=== PATIENT | male | born 1950 | race Caucasian/White ===

== ENCOUNTER 2020-01-02 19:30 | Emergency (ER) | payer BC, MEDICARE ==
[2020-01-02] MEDS ORDERED: Sodium Chloride 0.9% 10 ML Syringe FLUSH PRN (19:33)
--- NOTE | 2020-01-02 19:47 | EDM.PDOC ---
ED HPI GENERAL MEDICAL PROBLEM - General Stated Complaint: CHEST PAIN Time Seen by Provider: 01/02/20 19:31 Source of Information: Reports: Patient History Limitations: Reports: No Limitations - History of Present Illness INITIAL COMMENTS - FREE TEXT/NARRATIVE: Holden is a 69-year-old male who presents to the ER for evaluation of acute onset of chest pain. Patient states it started earlier today with episodes occurring approximately every 15 minutes involving his left anterior lower chest. Each episode lasted about 1 to 2 seconds and was a dull ache. Over the course of the afternoon the duration of the pain has increased to about 5 to 10 seconds. Is not associated with any fever, chills, cough or shortness of breath, nausea or vomiting, diaphoresis, or palpitations. The patient denies any rash. When the pain comes it does not make it difficult for him to breathe. He has not had this before. Patient has a history of cerebral palsy and seizure disorder. He is on medications for hyperlipidemia and had been taking a half aspirin a day but has discontinued that in the last several weeks. He denies any trauma. Onset: Today Duration: Intermittent Location: Reports: Chest Quality: Reports: Ache, Dull Severity: Moderate Improves with: Reports: None Worsens with: Reports: None Associated Symptoms: Reports: No Other Symptoms upper left sided chest pain Pain Score (Numeric/FACES): 2 - Related Data Allergies Allergy/AdvReac Type Severity Reaction Status Date / Time No Known Allergies Allergy Verified 01/02/20 19:38 Home Meds: Home Meds Fenofibrate,Micronized [Fenofibrate] 134 mg PO QAM 01/12/13 [History] atorvaSTATin [Lipitor] 40 mg PO BEDTIME 01/12/13 [History] carBAMazepine [Carbamazepine] 400 mg PO BID 01/12/13 [History] lamoTRIgine [Lamotrigine] 200 mg PO BID 01/12/13 [History] Cholecalciferol (Vitamin D3) [Vitamin D3] 4,000 units PO BID 08/03/15 [History] [place]-3 Fatty Acids [Fish Oil] 300 mg PO DAILY 08/03/15 [History] Aspirin [Halfprin] 81 mg PO DAILY 02/13/18 [History] Magnesium 250 mg PO DAILY 02/13/18 [History] Past Medical History HEENT History: Reports: Impaired Vision Cardiovascular History: Reports: CAD, High Cholesterol Respiratory History: Reports: None, Sleep Apnea Other Respiratory History: c-pap Gastrointestinal History: Reports: None Genitourinary History: Reports: None Musculoskeletal History: Reports: None Neurological History: Reports: Cerebral Palsy, Seizure Other Neuro History: LAST SEIZURE WAS 1973 Psychiatric History: Reports: Depression Endocrine/Metabolic History: Reports: None Hematologic History: Reports: None Immunologic History: Reports: None Oncologic (Cancer) History: Reports: Basal Cell Carcinoma Dermatologic History: Reports: None - Infectious Disease History Infectious Disease History: Reports: Chicken Pox, Measles, Mumps - Past Surgical History HEENT Surgical History: Reports: None Cardiovascular Surgical History: Reports: Other (See Below) Other Cardiovascular Surgeries/Procedures: ANGIOGRAM GI Surgical History: Reports: Colonoscopy Endocrine Surgical History: Reports: None Neurological Surgical History: Reports: None Musculoskeletal Surgical History: Reports: None Oncologic Surgical History: Reports: None Dermatological Surgical History: Reports: None Social & Family History - Family History Family Medical History: Noncontributory - Caffeine Use Caffeine Use: Reports: Coffee, Soda ED ROS GENERAL - Review of Systems Review Of Systems: See Below Constitutional: Reports: No Symptoms HEENT: Reports: No Symptoms Respiratory: Reports: No Symptoms Cardiovascular: Reports: Chest Pain (Intermittent episodes occurring about every 15 minutes and lasting about 1 to 2 seconds increasing now to about 5 to 10 seconds described as dull aching pain. The does not appear to be any respiratory component to this i.e. pleurodynia.) Endocrine: Reports: No Symptoms GI/Abdominal: Reports: No Symptoms Musculoskeletal: Reports: No Symptoms Skin: Reports: No Symptoms. Denies: Rash Neurological: Reports: No Symptoms Psychiatric: Reports: No Symptoms Hematologic/Lymphatic: Reports: No Symptoms Immunologic: Reports: No Symptoms ED EXAM, GENERAL - Physical Exam Exam: See Below Exam Limited By: No Limitations General Appearance: Alert, WD/WN, No Apparent Distress Eye Exam: Bilateral Eye: EOMI, PERRL Head: Atraumatic, Normocephalic Neck: Normal Inspection, Non-Tender, Limited Range of Motion (Chronic kyphosis due to his cerebral palsy) Respiratory/Chest: No Respiratory Distress, Lungs Clear, Normal Breath Sounds, No Accessory Muscle Use, Chest Non-Tender Cardiovascular: Normal Peripheral Pulses, Regular Rate, Rhythm, No Edema, No Gallop, No JVD, No Murmur, No Rub Peripheral Pulses: 2+: Carotid (L), Carotid (R), Radial (L), Radial (R), Posterior Tibial (L), Posterior Tibial (R), Dorsalis Pedis (L), Dorsalis Pedis (R) GI/Abdominal: Normal Bowel Sounds, Soft, Non-Tender, No Organomegaly, No Distention, No Abnormal Bruit, No Mass Back Exam: Normal Inspection, Full Range of Motion, NT Extremities: Normal Inspection, Normal Range of Motion, Non-Tender, Normal Capillary Refill, No Pedal Edema Neurological: Alert, Oriented, CN II-XII Intact, Normal Cognition, Normal Gait, Normal Reflexes, No Motor/Sensory Deficits Psychiatric: Normal Affect, Normal Mood Skin Exam: Warm, Dry, Intact, Normal Color, No Rash. No: Rash Lymphatic: No Adenopathy #1 Interpretation EKG Date: 01/02/20 Time: 19:38 Rhythm: NSR Helen: Normal P-Wave: Present QRS: Normal ST-T: Normal QT: Normal Course - Vital Signs Last Recorded V/S: Last Vital Signs Temp 36.8 C 01/02/20 19:49 Pulse 71 01/02/20 19:49 Resp 16 01/02/20 19:49 BP 152/79 H 01/02/20 19:49 Pulse Ox 95 01/02/20 19:49 - Orders/Labs/Meds Orders: Active Orders 24 hr Category Date Time Status EKG Documentation Completion [RC] ASDIRECTED Care 01/02/20 19:34 Active Chest 2V [CR] Stat Exams 01/02/20 19:31 Taken Sodium Chloride 0.9% [Saline Flush] Med 01/02/20 19:33 Active 10 ml FLUSH ASDIRECTED PRN Saline Lock Insert [OM.PC] Routine Oth 01/02/20 19:33 Ordered EKG 12 Lead [EK] Routine Ther 01/02/20 19:34 Ordered Medication Orders Sodium Chloride (Saline Flush) 10 ml FLUSH ASDIRECTED PRN PRN Reason: Keep Vein Open Last Admin: 01/02/20 20:00 Dose: 10 ml Documented by: ASHWINI Labs: Laboratory Tests 01/02/20 01/02/20 01/02/20 Range/Units 19:48 19:48 19:48 WBC 8.4 (4.5-11.0) K/uL RBC 4.73 (4.30-5.90) M/uL Hgb 14.6 (12.0-15.0) g/dL Hct 43.3 (40.0-54.0) % MCV 92 (80-98) fL MCH 31 (27-31) pg MCHC 34 (32-36) % Plt Count 211 (150-400) K/uL Neut % (Auto) 52 (36-66) % Lymph % (Auto) 34 (24-44) % Douglas % (Auto) 8 H (2-6) % Eos % (Auto) 5 H (2-4) % Baso % (Auto) 1 (0-1) % PT 11.1 (9.5-12.0) sec INR 1.02 (0.80-1.20) D-Dimer, Quantitative < 100 (0.0-400.0) ng/mL Sodium (140-148) mmol/L Potassium (3.6-5.2) mmol/L Chloride (100-108) mmol/L Carbon Dioxide (21-32) mmol/L Anion Gap (5.0-14.0) mmol/L BUN (7-18) mg/dL Creatinine (0.8-1.3) mg/dL Est Cr Clr Drug Dosing mL/min Estimated GFR (MDRD) (>60) Glucose (74-106) mg/dL Calcium (8.5-10.1) mg/dL Total Bilirubin (0.2-1.0) mg/dL AST (15-37) U/L ALT (12-78) U/L Alkaline Phosphatase (46-116) U/L Troponin I (0.000-0.056) ng/mL C-Reactive Protein (0.0-0.3) mg/dL Total Protein (6.4-8.2) g/dL Albumin (3.4-5.0) g/dL Globulin (2.3-3.5) g/dL Albumin/Globulin Ratio (1.2-2.2) 01/02/20 01/02/20 Range/Units 19:48 20:19 WBC (4.5-11.0) K/uL RBC (4.30-5.90) M/uL Hgb (12.0-15.0) g/dL Hct (40.0-54.0) % MCV (80-98) fL MCH (27-31) pg MCHC (32-36) % Plt Count (150-400) K/uL Neut % (Auto) (36-66) % Lymph % (Auto) (24-44) % Douglas % (Auto) (2-6) % Eos % (Auto) (2-4) % Baso % (Auto) (0-1) % PT (9.5-12.0) sec INR (0.80-1.20) D-Dimer, Quantitative (0.0-400.0) ng/mL Sodium 138 L (140-148) mmol/L Potassium 3.6 (3.6-5.2) mmol/L Chloride 101 (100-108) mmol/L Carbon Dioxide 25 (21-32) mmol/L Anion Gap 15.6 H (5.0-14.0) mmol/L BUN 17 (7-18) mg/dL Creatinine 0.8 (0.8-1.3) mg/dL Est Cr Clr Drug Dosing 88.38 mL/min Estimated GFR (MDRD) > 60 (>60) Glucose 93 (74-106) mg/dL Calcium 8.8 (8.5-10.1) mg/dL Total Bilirubin 0.3 (0.2-1.0) mg/dL AST 17 (15-37) U/L ALT 26 (12-78) U/L Alkaline Phosphatase 69 (46-116) U/L Troponin I < 0.017 (0.000-0.056) ng/mL C-Reactive Protein < 0.05 (0.0-0.3) mg/dL Total Protein 7.1 (6.4-8.2) g/dL Albumin 4.0 (3.4-5.0) g/dL Globulin 3.1 (2.3-3.5) g/dL Albumin/Globulin Ratio 1.3 (1.2-2.2) Meds: Medications Generic Name Dose Route Start Last Admin Trade Name Freq PRN Reason Stop Dose Admin Sodium Chloride 10 ml 01/02/20 19:33 01/02/20 20:00 Saline Flush FLUSH 10 ml ASDIRECTED PRN Administration Keep Vein Open - Radiology Interpretation Free Text/Narrative:: 2 view chest x-ray is obtained showing bibasilar haziness likely due to either atelectasis or fibrosis. There is no acute infiltrates. Pacemaker is now present compared to his previous chest x-ray. There is otherwise no worrisome findings. Poor inspiratory effort demonstrating bilateral elevated hemidiaphragms. Departure - Departure Time of Disposition: 21:40 Disposition: Home, Self-Care 01 Condition: Good Clinical Impression: Atypical chest pain Instructions: Chest Wall Pain, [id number], Nonspecific Chest Pain, Adult, [id number] Care Plan Goals: I would encourage you to take either aspirin 325 mg once daily or ibuprofen 400 mg every 6 hours to help control your chest pain which is likely arising from the chest wall and irritation of either the nerve or muscle. There is no evidence at this time that this is arising from your heart or lung. Return to the emergency room for evaluation if you start to develop any significant fever, chills, shortness of breath, productive cough, or worsening of your chest pain. Sepsis Event Note (ED) - Focused Exam Vital Signs: Vital Signs Temp Pulse Resp BP Pulse Ox 01/02/20 19:49 36.8 C 71 16 152/79 H 95 - Problem List & Annotations (1) Chest pain, non-cardiac SNOMED Code(s): 696335514 Code(s): R07.89 - OTHER CHEST PAIN Status: Acute Priority: Medium Current Visit: No (2) Atypical chest pain SNOMED Code(s): 731004019 Code(s): R07.89 - OTHER CHEST PAIN Status: Acute Priority: Medium Current Visit: Yes - Problem List Review Problem List Initiated/Reviewed/Updated: Yes - My Orders Last 24 Hours: My Active Orders 01/02/20 19:31 Chest 2V [CR] Stat 01/02/20 19:33 Sodium Chloride 0.9% [Saline Flush] 10 ml FLUSH ASDIRECTED PRN Saline Lock Insert [OM.PC] Routine 01/02/20 19:34 EKG Documentation Completion [RC] ASDIRECTED EKG 12 Lead [EK] Routine - Assessment/Plan Last 24 Hours: My Active Orders 01/02/20 19:31 Chest 2V [CR] Stat 01/02/20 19:33 Sodium Chloride 0.9% [Saline Flush] 10 ml FLUSH ASDIRECTED PRN Saline Lock Insert [OM.PC] Routine 10/15/20 19:34 EKG Documentation Completion [RC] ASDIRECTED EKG 12 Lead [EK] Routine
[2020-01-02 19:57] VITALS: BP 152/79; PULSE 71
--- NOTE | 2020-01-03 09:04 | CR ---
CHEST: 2 view CLINICAL HISTORY:Chest pain COMPARISON:2013 FINDINGS: Heart size and pulmonary vascularity are normal. Patient has permanent cardiac pacer/defibrillator. There are atherosclerotic changes in the aorta.. There is some patchy density in both lower lung kennedy some of this may be patchy atelectasis. Minimal infiltrate is not excluded. IMPRESSION: Minimal patchy bibasal densities. This may be some patchy atelectasis. Infiltrate is felt less likely. If clinically relevant short-term follow-up chest x-ray is a consideration
== END 2020-01-02 21:53 | disposition home or self-care (01) ==
LOC: JP.ED 19:30
DX: R07.89 Other chest pain (principal); I25.10 Atherosclerotic heart disease of native coronary artery without angina pectoris; E78.00 Pure hypercholesterolemia, unspecified; F32.9 Major depressive disorder, single episode, unspecified; M40.209 Unspecified kyphosis, site unspecified; Z79.82 Long term (current) use of aspirin; Z79.899 Other long term (current) drug therapy
CPT/HCPCS: 36415; 71046; 71046-26; 80053; 82962; 84484; 85025; 85379; 85610; 86140; 93005; 99285-25

== ENCOUNTER 2020-01-19 14:03 | Inpatient (IN) | payer MEDICARE ==
[2020-01-19] MEDS ORDERED: Dexamethasone 4 MG/ML SDV IVPUSH ONE (14:41)
--- NOTE | 2020-01-19 14:47 | EDM.PDOC ---
ED HPI GENERAL MEDICAL PROBLEM - General Chief Complaint: Respiratory Problem Stated Complaint: MEDICAL Time Seen by Provider: 01/19/20 14:30 Source of Information: Reports: Patient History Limitations: Reports: No Limitations - History of Present Illness INITIAL COMMENTS - FREE TEXT/NARRATIVE: 70-year-old male with cold-like symptoms for the past 4 days, his is Covid positive. He got a Covid test at the clinic 3 days ago which is pending, but he is worsening, worsening cough, more short of breath and more persistent fevers and just hurts all over. Denies nausea or vomiting. Arrived hypoxic with O2 sats in the mid to upper 80s and a persistent cough. Temperature of 102. Onset: Gradual Duration: Day(s): Associated Symptoms: Reports: Chest Pain (Some pain with coughing), Cough (Nonproductive), Shortness of Breath - Related Data Allergies Allergy/AdvReac Type Severity Reaction Status Date / Time No Known Allergies Allergy Verified 01/19/20 14:10 Home Meds: Home Meds Fenofibrate,Micronized [Fenofibrate] 134 mg PO QAM 01/12/13 [History] atorvaSTATin [Lipitor] 40 mg PO BEDTIME 01/12/13 [History] carBAMazepine [Carbamazepine] 400 mg PO BID 01/12/13 [History] lamoTRIgine [Lamotrigine] 200 mg PO BID 01/12/13 [History] Cholecalciferol (Vitamin D3) [Vitamin D3] 4,000 units PO BID 08/03/15 [History] [place]-3 Fatty Acids [Fish Oil] 300 mg PO DAILY 08/03/15 [History] Aspirin [Halfprin] 81 mg PO DAILY 02/13/18 [History] Magnesium 250 mg PO DAILY 02/13/18 [History] Past Medical History HEENT History: Reports: Impaired Vision Cardiovascular History: Reports: CAD, High Cholesterol Respiratory History: Reports: None, Sleep Apnea Other Respiratory History: c-pap Gastrointestinal History: Reports: None Genitourinary History: Reports: None Musculoskeletal History: Reports: None Neurological History: Reports: Cerebral Palsy, Seizure Other Neuro History: LAST SEIZURE WAS 1972 Psychiatric History: Reports: Depression Endocrine/Metabolic History: Reports: None Hematologic History: Reports: None Immunologic History: Reports: None Oncologic (Cancer) History: Reports: Basal Cell Carcinoma Dermatologic History: Reports: None - Infectious Disease History Infectious Disease History: Reports: Chicken Pox, Measles, Mumps - Past Surgical History HEENT Surgical History: Reports: None Cardiovascular Surgical History: Reports: Other (See Below) Other Cardiovascular Surgeries/Procedures: ANGIOGRAM GI Surgical History: Reports: Colonoscopy Endocrine Surgical History: Reports: None Neurological Surgical History: Reports: None Musculoskeletal Surgical History: Reports: None Oncologic Surgical History: Reports: None Dermatological Surgical History: Reports: None Social & Family History - Family History Family Medical History: Noncontributory - Tobacco Use Tobacco Use Status *Q: Never Tobacco User - Caffeine Use Caffeine Use: Reports: Coffee, Soda ED ROS GENERAL - Review of Systems Review Of Systems: See Below Constitutional: Reports: Fever, Chills, Malaise HEENT: Reports: Throat Pain Respiratory: Reports: Shortness of Breath, Cough. Denies: Sputum Cardiovascular: Reports: Chest Pain (Only with coughing) GI/Abdominal: Denies: Vomiting Skin: Reports: Diaphoresis Neurological: Denies: Headache ED EXAM, GENERAL - Physical Exam Exam: See Below Exam Limited By: No Limitations General Appearance: Alert, Mild Distress (Looks very uncomfortable, weak) Head: Atraumatic Neck: Supple Respiratory/Chest: Other (Few basilar rales and scattered expiratory wheezes) Cardiovascular: Regular Rate, Rhythm GI/Abdominal: Soft, Non-Tender Extremities: Other (Chronic weakness of the left upper extremity, no lower extremity edema) Neurological: Alert, Oriented Psychiatric: Anxious Skin Exam: Warm, Dry, Other (Mildly diaphoretic) Course - Vital Signs Last Recorded V/S: Last Vital Signs Temp 97.6 F 01/21/20 11:08 Pulse 80 01/21/20 11:08 Resp 18 01/21/20 11:08 BP 111/54 L 01/21/20 11:08 Pulse Ox 95 01/21/20 11:08 - Orders/Labs/Meds Orders: Medication Orders Acetaminophen (Tylenol) 650 mg PO Q4H PRN PRN Reason: Fever Greater Than 101 Last Admin: 01/21/20 00:56 Dose: 650 mg Documented by: Admin: 01/20/20 08:55 Dose: 650 mg Documented by: Admin: 01/19/20 18:41 Dose: 650 mg Documented by: WILMAN Albuterol (Ventolin Hfa) 2 gm INH Q4H PRN PRN Reason: Shortness of Breath Last Admin: 01/21/20 00:32 Dose: 2 inhalation Documented by: Admin: 01/20/20 01:02 Dose: 2 inhalation Documented by: JARAD Aspirin (Halfprin) 81 mg PO DAILY [facility] Last Admin: 01/21/20 10:10 Dose: 81 mg Documented by: Admin: 01/20/20 08:42 Dose: 81 mg Documented by: CASTRO Atorvastatin Calcium (Lipitor) 40 mg PO BEDTIME [facility] Last Admin: 01/20/20 20:00 Dose: 40 mg Documented by: Admin: 01/19/20 20:31 Dose: 40 mg Documented by: JARAD Carbamazepine (Tegretol Tab) 400 mg PO BID [facility] Last Admin: 01/21/20 10:10 Dose: 400 mg Documented by: Admin: 01/20/20 20:00 Dose: 400 mg Documented by: Admin: 01/20/20 08:42 Dose: 400 mg Documented by: Admin: 01/19/20 20:32 Dose: 400 mg Documented by: JARAD Dexamethasone (Dexamethasone) 6 mg IVPUSH DAILY [facility] Stop: 01/29/20 09:01 Last Admin: 01/21/20 09:44 Dose: 6 mg Documented by: Admin: 01/20/20 08:43 Dose: 6 mg Documented by: CASTRO Enoxaparin Sodium (Lovenox) 40 mg SUBCUT BEDTIME [facility] Last Admin: 01/20/20 20:00 Dose: 40 mg Documented by: Admin: 01/19/20 20:31 Dose: 40 mg Documented by: JARAD Fenofibrate (Fenofibrate) 134 mg PO QAM [facility] Last Admin: 01/21/20 10:10 Dose: 134 mg Documented by: Admin: 01/20/20 08:42 Dose: 134 mg Documented by: CASTRO Remdesivir 100 mg/ Sodium (Chloride) 100 mls @ 100 mls/hr IV Q24H [facility] Stop: 01/23/20 15:59 Last Admin: 01/20/20 16:22 Dose: 100 mls/hr Documented by: CASTRO Potassium Chloride 20 meq/Lidocaine HCl 2 ml/ Sodium Chloride 112 mls @ 56 mls/hr IV Q2H [facility] Stop: 01/21/20 13:59 Last Admin: 01/21/20 10:13 Dose: 56 mls/hr Documented by: VALERIE Lamotrigine (Lamotrigine) 200 mg PO BID [facility] Last Admin: 01/21/20 10:10 Dose: 200 mg Documented by: Admin: 01/20/20 20:00 Dose: 200 mg Documented by: Admin: 01/20/20 08:42 Dose: 200 mg Documented by: Admin: 01/19/20 20:32 Dose: 200 mg Documented by: JARAD Magnesium Oxide (Magnesium Oxide) 400 mg PO DAILY [facility] Last Admin: 01/21/20 10:10 Dose: 400 mg Documented by: Admin: 01/20/20 08:42 Dose: 400 mg Documented by: CASTRO Ondansetron HCl (Zofran) 4 mg IV Q4H PRN PRN Reason: Nausea/Vomiting Last Admin: 01/21/20 00:56 Dose: 4 mg Documented by: Admin: 01/20/20 12:54 Dose: 4 mg Documented by: Admin: 01/20/20 00:24 Dose: 4 mg Documented by: JARAD Polyethylene Glycol (Miralax) 17 gm PO DAILY PRN PRN Reason: Constipation Sodium Chloride (Saline Flush) 10 ml FLUSH ASDIRECTED PRN PRN Reason: Keep Vein Open Labs: Laboratory Tests 01/19/20 01/19/20 01/19/20 Range/Units 15:04 15:04 15:04 WBC 8.4 (4.5-11.0) K/uL RBC 4.36 (4.30-5.90) M/uL Hgb 13.5 (12.0-15.0) g/dL Hct 39.2 L (40.0-54.0) % MCV 90 (80-98) fL MCH 31 (27-31) pg MCHC 34 (32-36) % Plt Count 185 (150-400) K/uL Neut % (Auto) 88 H (36-66) % Lymph % (Auto) 6 L (24-44) % [place] % (Auto) 6 (2-6) % Eos % (Auto) 1 L (2-4) % Baso % (Auto) 0 (0-1) % PT (9.5-12.0) sec INR (0.80-1.20) APTT (27.0-36.0) sec D-Dimer, Quantitative (0.0-400.0) ng/mL Sodium 132 L (140-148) mmol/L Potassium 3.4 L (3.6-5.2) mmol/L Chloride 97 L (100-108) mmol/L Carbon Dioxide 24 (21-32) mmol/L Anion Gap 14.4 H (5.0-14.0) mmol/L BUN 12 (7-18) mg/dL Creatinine 0.9 (0.8-1.3) mg/dL Est Cr Clr Drug Dosing 77.46 mL/min Estimated GFR (MDRD) > 60 (>60) Glucose 103 (74-106) mg/dL Lactic Acid 2.4 H (0.4-2.0) mmol/L Calcium 8.7 (8.5-10.1) mg/dL Ferritin > 1000 H (8-388) ng/ml Total Bilirubin 0.4 (0.2-1.0) mg/dL AST 31 D (15-37) U/L ALT 23 (12-78) U/L Alkaline Phosphatase 44 L (46-116) U/L C-Reactive Protein (0.0-0.3) mg/dL Total Protein 6.7 (6.4-8.2) g/dL Albumin 2.9 L (3.4-5.0) g/dL Globulin 3.8 H (2.3-3.5) g/dL Albumin/Globulin Ratio 0.8 L (1.2-2.2) 01/19/20 01/19/20 01/19/20 Range/Units 15:04 15:04 15:04 WBC (4.5-11.0) K/uL RBC (4.30-5.90) M/uL Hgb (12.0-15.0) g/dL Hct (40.0-54.0) % MCV (80-98) fL MCH (27-31) pg MCHC (32-36) % Plt Count (150-400) K/uL Neut % (Auto) (36-66) % Lymph % (Auto) (24-44) % [place] % (Auto) (2-6) % Eos % (Auto) (2-4) % Baso % (Auto) (0-1) % PT 10.0 (9.5-12.0) sec INR 0.92 (0.80-1.20) APTT 31.3 (27.0-36.0) sec D-Dimer, Quantitative 736 H (0.0-400.0) ng/mL Sodium (140-148) mmol/L Potassium (3.6-5.2) mmol/L Chloride (100-108) mmol/L Carbon Dioxide (21-32) mmol/L Anion Gap (5.0-14.0) mmol/L BUN (7-18) mg/dL Creatinine (0.8-1.3) mg/dL Est Cr Clr Drug Dosing mL/min Estimated GFR (MDRD) (>60) Glucose (74-106) mg/dL Lactic Acid (0.4-2.0) mmol/L Calcium (8.5-10.1) mg/dL Ferritin (8-388) ng/ml Total Bilirubin (0.2-1.0) mg/dL AST (15-37) U/L ALT (12-78) U/L Alkaline Phosphatase (46-116) U/L C-Reactive Protein (0.0-0.3) mg/dL Total Protein (6.4-8.2) g/dL Albumin (3.4-5.0) g/dL Globulin (2.3-3.5) g/dL Albumin/Globulin Ratio (1.2-2.2) 01/19/20 Range/Units 15:04 WBC (4.5-11.0) K/uL RBC (4.30-5.90) M/uL Hgb (12.0-15.0) g/dL Hct (40.0-54.0) % MCV (80-98) fL MCH (27-31) pg MCHC (32-36) % Plt Count (150-400) K/uL Neut % (Auto) (36-66) % Lymph % (Auto) (24-44) % [place] % (Auto) (2-6) % Eos % (Auto) (2-4) % Baso % (Auto) (0-1) % PT (9.5-12.0) sec INR (0.80-1.20) APTT (27.0-36.0) sec D-Dimer, Quantitative (0.0-400.0) ng/mL Sodium (140-148) mmol/L Potassium (3.6-5.2) mmol/L Chloride (100-108) mmol/L Carbon Dioxide (21-32) mmol/L Anion Gap (5.0-14.0) mmol/L BUN (7-18) mg/dL Creatinine (0.8-1.3) mg/dL Est Cr Clr Drug Dosing mL/min Estimated GFR (MDRD) (>60) Glucose (74-106) mg/dL Lactic Acid (0.4-2.0) mmol/L Calcium (8.5-10.1) mg/dL Ferritin (8-388) ng/ml Total Bilirubin (0.2-1.0) mg/dL AST (15-37) U/L ALT (12-78) U/L Alkaline Phosphatase (46-116) U/L C-Reactive Protein 19.06 H (0.0-0.3) mg/dL Total Protein (6.4-8.2) g/dL Albumin (3.4-5.0) g/dL Globulin (2.3-3.5) g/dL Albumin/Globulin Ratio (1.2-2.2) Meds: Medications Generic Name Dose Route Start Last Admin Trade Name Freq PRN Reason Stop Dose Admin Acetaminophen 650 mg 01/19/20 17:59 01/21/20 00:56 Tylenol PO 650 mg Q4H PRN Administration Fever Greater Than 101 Albuterol 2 gm 01/20/20 00:44 01/21/20 00:32 Ventolin Hfa INH 2 inhalation Q4H PRN Administration Shortness of Breath Aspirin 81 mg 01/20/20 09:00 01/21/20 10:10 Halfprin PO 81 mg DAILY SHIRA Administration Atorvastatin Calcium 40 mg 01/19/20 21:00 01/20/20 20:00 Lipitor PO 40 mg BEDTIME SHIRA Administration Carbamazepine 400 mg 01/19/20 21:00 01/21/20 10:10 Tegretol Tab PO 400 mg BID SHIRA Administration Dexamethasone 6 mg 01/20/20 09:00 01/21/20 09:44 Dexamethasone IVPUSH 01/29/20 09:01 6 mg DAILY SHIRA Administration Enoxaparin Sodium 40 mg 01/19/20 21:00 01/20/20 20:00 Lovenox SUBCUT 40 mg BEDTIME SHIRA Administration Fenofibrate 134 mg 01/20/20 09:00 01/21/20 10:10 Fenofibrate PO 134 mg QAM SHIRA Administration Remdesivir 100 mg/ Sodium 100 mls @ 100 mls/hr 01/20/20 15:00 01/20/20 16:22 Chloride IV 01/23/20 15:59 100 mls/hr Q24H SHIRA Administration Potassium Chloride 20 meq/ 112 mls @ 56 mls/hr 01/21/20 10:00 01/21/20 10:13 Lidocaine HCl 2 ml/ Sodium IV 01/21/20 13:59 56 mls/hr Chloride Q2H SHIRA Administration Lamotrigine 200 mg 01/19/20 21:00 01/21/20 10:10 Lamotrigine PO 200 mg BID SHIRA Administration Magnesium Oxide 400 mg 01/20/20 09:00 01/21/20 10:10 Magnesium Oxide PO 400 mg DAILY SHIRA Administration Ondansetron HCl 4 mg 01/19/20 17:59 01/21/20 00:56 Zofran IV 4 mg Q4H PRN Administration Nausea/Vomiting Polyethylene Glycol 17 gm 01/19/20 17:59 Miralax PO DAILY PRN Constipation Sodium Chloride 10 ml 01/19/20 17:59 Saline Flush FLUSH ASDIRECTED PRN Keep Vein Open Discontinued Medications Generic Name Dose Route Start Last Admin Trade Name Freq PRN Reason Stop Dose Admin Dexamethasone 6 mg 01/19/20 14:41 01/19/20 15:19 Dexamethasone IVPUSH 01/19/20 14:42 6 mg ONETIME ONE Administration Furosemide 40 mg 01/20/20 12:30 01/20/20 12:54 Lasix IVPUSH 01/20/20 12:31 40 mg ONETIME ONE Administration Furosemide 40 mg 01/21/20 09:00 Lasix IVPUSH 01/21/20 09:01 ONETIME ONE Furosemide 40 mg 01/21/20 00:44 01/21/20 00:58 Lasix IVPUSH 01/21/20 00:45 40 mg ONETIME ONE Administration Furosemide Confirm 01/21/20 00:53 01/21/20 00:59 Lasix Administered 01/21/20 00:54 Not Given Dose 40 mg .ROUTE .STK-MED ONE Remdesivir 200 mg/ Sodium 250 mls @ 250 mls/hr 01/19/20 14:40 01/19/20 15:22 Chloride IV 01/19/20 14:41 250 mls/hr ONETIME ONE Administration Sodium Chloride 1,000 mls @ 500 mls/hr 01/19/20 15:00 01/19/20 15:19 Normal Saline IV 500 mls/hr ASDIRECTED SHIRA Administration Lorazepam 1 mg 01/20/20 00:51 01/20/20 01:02 Ativan IVPUSH 01/20/20 00:52 1 mg ONETIME ONE Administration - Re-Assessments/Exams Free Text/Narrative Re-Assessment/Exam: 01/19/20 14:46 Chart was checked and this patient is positive for Covid. Precautions were taken, 1 view chest x-ray was ordered along with CBC, CMP, CRP, D-dimer, PT, PTT, and ferritin. After IV was established he was given 200 mg of IV remdesivir and 6 mg of IV dexamethasone. 01/19/20 15:44 Chest x-ray shows bilateral pulmonary infiltrates typical of Covid. 01/19/20 15:45 White blood cell count is normal but CRP is very elevated at 19. Dr. Barr will admit the patient to the Covid unit. Departure - Departure Time of Disposition: 18:36 Disposition: Admitted As Inpatient 67 Clinical Impression: COVID-19 Pneumonia Qualifiers: Laterality: bilateral - Discharge Information Sepsis Event Note (ED) - Evaluation Sepsis Screening Result: Possible Sepsis Risk
[2020-01-19] MEDS ORDERED: Sodium Chloride 0.9% 1,000 ML IV SCH (15:00)
--- NOTE | 2020-01-19 17:37 | PCM.HP.2 ---
H&P History of Present Illness - General Date of Service: 01/19/20 Admit Problem/Dx: Admission Diagnosis/Problem Admission Diagnosis/Problem Hypoxia Source of Information: Patient, Provider, RN Notes Reviewed History Limitations: Reports: No Limitations - History of Present Illness Initial Comments - Free Text/Narative: Mr. Black is a 70-year-old gentleman who was admitted through the emergency department with cough, weakness, shortness of breath, secondary to COVID-19 and bilateral pneumonia. He has been sick for several days and has become progressively more short of breath over the last 24 hours. He is known to be Covid positive. Chest x-ray does show evidence of bilateral infiltrates. He was found to be hypoxic on initial presentation but has corrected to normal oxygenation with 2 L of oxygen via nasal cannula. He denies underlying diabetes, significant heart disease, or chronic respiratory illnesses. He has had temperature elevation while in the emergency department. - Related Data Allergies/Adverse Reactions: Allergies Allergy/AdvReac Type Severity Reaction Status Date / Time No Known Allergies Allergy Verified 01/19/20 14:10 Home Medications: Home Meds Fenofibrate,Micronized [Fenofibrate] 134 mg PO QAM 01/12/13 [History] atorvaSTATin [Lipitor] 40 mg PO BEDTIME 01/12/13 [History] carBAMazepine [Carbamazepine] 400 mg PO BID 01/12/13 [History] lamoTRIgine [Lamotrigine] 200 mg PO BID 01/12/13 [History] Cholecalciferol (Vitamin D3) [Vitamin D3] 4,000 units PO BID 08/03/15 [History] [place]-3 Fatty Acids [Fish Oil] 300 mg PO DAILY 08/03/15 [History] Aspirin [Halfprin] 81 mg PO DAILY 02/13/18 [History] Magnesium 250 mg PO DAILY 02/13/18 [History] Past Medical History HEENT History: Reports: Impaired Vision Cardiovascular History: Reports: CAD, High Cholesterol Respiratory History: Reports: None, Sleep Apnea Other Respiratory History: c-pap Gastrointestinal History: Reports: None Genitourinary History: Reports: None Musculoskeletal History: Reports: None Neurological History: Reports: Cerebral Palsy, Seizure Other Neuro History: LAST SEIZURE WAS 1972 Psychiatric History: Reports: Depression Endocrine/Metabolic History: Reports: None Hematologic History: Reports: None Immunologic History: Reports: None Oncologic (Cancer) History: Reports: Basal Cell Carcinoma Dermatologic History: Reports: None - Infectious Disease History Infectious Disease History: Reports: Chicken Pox, Measles, Mumps - Past Surgical History HEENT Surgical History: Reports: None Cardiovascular Surgical History: Reports: Other (See Below) Other Cardiovascular Surgeries/Procedures: ANGIOGRAM GI Surgical History: Reports: Colonoscopy Endocrine Surgical History: Reports: None Neurological Surgical History: Reports: None Musculoskeletal Surgical History: Reports: None Oncologic Surgical History: Reports: None Dermatological Surgical History: Reports: None Social & Family History - Family History Family Medical History: Noncontributory - Tobacco Use Tobacco Use Status *Q: Never Tobacco User - Caffeine Use Caffeine Use: Reports: Coffee, Soda H&P Review of Systems - Review of Systems: Review Of Systems: See Below General: Reports: Fever, Chills, Malaise, Weakness, Fatigue, Decreased Appetite HEENT: Reports: No Symptoms Pulmonary: Reports: Shortness of Breath, Cough. Denies: Wheezing, Pleuritic Chest Pain, Sputum, Hemoptysis Cardiovascular: Reports: Dyspnea on Exertion. Denies: Chest Pain, Palpitations, Orthopnea, PND, Edema, Lightheadedness Gastrointestinal: Reports: No Symptoms Genitourinary: Reports: No Symptoms Musculoskeletal: Reports: No Symptoms Skin: Reports: No Symptoms Psychiatric: Reports: No Symptoms Neurological: Reports: No Symptoms Hematologic/Lymphatic: Reports: No Symptoms Immunologic: Reports: No Symptoms Exam - Exam Exam: See Below - Vital Signs Vital Signs: Last Vital Signs Temp 102.3 F H 01/19/20 14:21 Pulse 75 01/19/20 16:18 Resp 28 H 01/19/20 14:21 BP 142/64 H 01/19/20 16:18 Pulse Ox 88 L 01/19/20 16:18 Weight: 205 lb - Exam Quality Assessment: Supplemental Oxygen, DVT Prophylaxis General: Alert, Oriented, Cooperative, Moderate Distress HEENT: Conjunctiva Clear, Hearing Intact, Mucosa Moist & [place], Normal Nasal Septum, Posterior Pharynx Clear, Pupils Equal Neck: Supple, Trachea Midline, +2 Carotid Pulse wo Bruit Lungs: Decreased Breath Sounds, Rales. No: Crackles, Rhonchi, Wheezing Cardiovascular: Regular Rate, Regular Rhythm, Normal S1, Normal S2. No: Systolic Murmur, Diastolic Murmur GI/Abdominal Exam: Soft, Non-Tender, No Organomegaly, No Distention Back Exam: Normal Inspection, Full Range of Motion Extremities: Non-Tender, No Pedal Edema Skin: Warm, Dry, Intact Neurological: Cranial Nerves Intact, Strength Equal Bilateral, Normal Speech, Normal Tone, Sensation Intact. No: Focal Deficit Neuro Extensive - Mental Status: Alert, Oriented x3, Normal Mood/Affect, Normal Cognition, Memory Intact - Patient Data Lab Results Last 24 hrs: Laboratory Results - last 24 hr 01/19/20 01/19/20 01/19/20 Range/Units 15:04 15:04 15:04 WBC 8.4 (4.5-11.0) K/uL RBC 4.36 (4.30-5.90) M/uL Hgb 13.5 (12.0-15.0) g/dL Hct 39.2 L (40.0-54.0) % MCV 90 (80-98) fL MCH 31 (27-31) pg MCHC 34 (32-36) % Plt Count 185 (150-400) K/uL Neut % (Auto) 88 H (36-66) % Lymph % (Auto) 6 L (24-44) % [place] % (Auto) 6 (2-6) % Eos % (Auto) 1 L (2-4) % Baso % (Auto) 0 (0-1) % PT (9.5-12.0) sec INR (0.80-1.20) APTT (27.0-36.0) sec D-Dimer, Quantitative (0.0-400.0) ng/mL Sodium 132 L (140-148) mmol/L Potassium 3.4 L (3.6-5.2) mmol/L Chloride 97 L (100-108) mmol/L Carbon Dioxide 24 (21-32) mmol/L Anion Gap 14.4 H (5.0-14.0) mmol/L BUN 12 (7-18) mg/dL Creatinine 0.9 (0.8-1.3) mg/dL Est Cr Clr Drug Dosing 77.46 mL/min Estimated GFR (MDRD) > 60 (>60) Glucose 103 (74-106) mg/dL Lactic Acid 2.4 H (0.4-2.0) mmol/L Calcium 8.7 (8.5-10.1) mg/dL Ferritin > 1000 H (8-388) ng/ml Total Bilirubin 0.4 (0.2-1.0) mg/dL AST 31 D (15-37) U/L ALT 23 (12-78) U/L Alkaline Phosphatase 44 L (46-116) U/L C-Reactive Protein (0.0-0.3) mg/dL Total Protein 6.7 (6.4-8.2) g/dL Albumin 2.9 L (3.4-5.0) g/dL Globulin 3.8 H (2.3-3.5) g/dL Albumin/Globulin Ratio 0.8 L (1.2-2.2) 01/19/20 01/19/20 01/19/20 Range/Units 15:04 15:04 15:04 WBC (4.5-11.0) K/uL RBC (4.30-5.90) M/uL Hgb (12.0-15.0) g/dL Hct (40.0-54.0) % MCV (80-98) fL MCH (27-31) pg MCHC (32-36) % Plt Count (150-400) K/uL Neut % (Auto) (36-66) % Lymph % (Auto) (24-44) % [place] % (Auto) (2-6) % Eos % (Auto) (2-4) % Baso % (Auto) (0-1) % PT 10.0 (9.5-12.0) sec INR 0.92 (0.80-1.20) APTT 31.3 (27.0-36.0) sec D-Dimer, Quantitative 736 H (0.0-400.0) ng/mL Sodium (140-148) mmol/L Potassium (3.6-5.2) mmol/L Chloride (100-108) mmol/L Carbon Dioxide (21-32) mmol/L Anion Gap (5.0-14.0) mmol/L BUN (7-18) mg/dL Creatinine (0.8-1.3) mg/dL Est Cr Clr Drug Dosing mL/min Estimated GFR (MDRD) (>60) Glucose (74-106) mg/dL Lactic Acid (0.4-2.0) mmol/L Calcium (8.5-10.1) mg/dL Ferritin (8-388) ng/ml Total Bilirubin (0.2-1.0) mg/dL AST (15-37) U/L ALT (12-78) U/L Alkaline Phosphatase (46-116) U/L C-Reactive Protein (0.0-0.3) mg/dL Total Protein (6.4-8.2) g/dL Albumin (3.4-5.0) g/dL Globulin (2.3-3.5) g/dL Albumin/Globulin Ratio (1.2-2.2) 01/19/20 Range/Units 15:04 WBC (4.5-11.0) K/uL RBC (4.30-5.90) M/uL Hgb (12.0-15.0) g/dL Hct (40.0-54.0) % MCV (80-98) fL MCH (27-31) pg MCHC (32-36) % Plt Count (150-400) K/uL Neut % (Auto) (36-66) % Lymph % (Auto) (24-44) % [place] % (Auto) (2-6) % Eos % (Auto) (2-4) % Baso % (Auto) (0-1) % PT (9.5-12.0) sec INR (0.80-1.20) APTT (27.0-36.0) sec D-Dimer, Quantitative (0.0-400.0) ng/mL Sodium (140-148) mmol/L Potassium (3.6-5.2) mmol/L Chloride (100-108) mmol/L Carbon Dioxide (21-32) mmol/L Anion Gap (5.0-14.0) mmol/L BUN (7-18) mg/dL Creatinine (0.8-1.3) mg/dL Est Cr Clr Drug Dosing mL/min Estimated GFR (MDRD) (>60) Glucose (74-106) mg/dL Lactic Acid (0.4-2.0) mmol/L Calcium (8.5-10.1) mg/dL Ferritin (8-388) ng/ml Total Bilirubin (0.2-1.0) mg/dL AST (15-37) U/L ALT (12-78) U/L Alkaline Phosphatase (46-116) U/L C-Reactive Protein 19.06 H (0.0-0.3) mg/dL Total Protein (6.4-8.2) g/dL Albumin (3.4-5.0) g/dL Globulin (2.3-3.5) g/dL Albumin/Globulin Ratio (1.2-2.2) Result Diagrams: 01/19/20 15:04 01/19/20 15:04 Sepsis Event Note - Evaluation Sepsis Screening Result: Possible Sepsis Risk - Focused Exam Vital Signs: Vital Signs Temp Pulse Resp BP Pulse Ox 01/19/20 16:18 75 142/64 H 88 L 01/19/20 15:22 88 147/66 H 89 L 01/19/20 14:21 102.3 F H 94 28 H 155/73 H 84 L *Q Meaningful Use (ADM) - VTE Risk Assess *Q Each Risk Factor Represents 1 Point: Obesity ( BMI > 25 kg/m2), Serious lung disease including pneumonia Total Score 1 Point Risk Factors: 2 Each Risk Factor Represents 2 Points: Age 60 - 74 Years Total Score 2 Point Risk Factors: 2 Each Risk Factor Represents 3 Points: None Total Score 3 Point Risk Factors: 0 Each Risk Factor Represents 5 Points: None Total Score 5 Point Risk Factors: 0 Venous Thromboembolism Risk Factor Score *Q: 4 Problem List Initiated/Reviewed/Updated: Yes Orders Last 24hrs: Active Orders 24 hr Category Date Time Status Patient Status Manage Transfer [TRANSFER] Routine ADT 01/19/20 17:22 Ordered Chest 1V Frontal [CR] Stat Exams 01/19/20 14:38 Taken Sodium Chloride 0.9% [Normal Saline] 1,000 ml Med 01/19/20 15:00 Active IV ASDIRECTED Resuscitation Status Routine Resus Stat 01/19/20 17:28 Ordered Medication Orders Sodium Chloride (Normal Saline) 1,000 mls @ 500 mls/hr IV ASDIRECTED SHIRA Last Admin: 01/19/20 15:19 Dose: 500 mls/hr Documented by: CHARLES Assessment/Plan Comment:: ASSESSMENT AND PLAN SECONDARY TO [id number] for the past few days, increased dyspnea over the last 24 hours. Progressive weakness and nonproductive cough. -Saline lock IV -Remdesivir 200 mg IV given in emergency department, 100 mg IV daily x4 days starting tomorrow -Dexamethasone 6 mg IV for 5 to 10 days -Convalescent plasma 1 unit daily -Isolation HYPOXIC RESPIRATORY COMPROMISE-secondary to COVID-19 and bilateral pneumonia -Supplemental oxygen as needed -Continuous pulse oximetry SEIZURE DISORDER -Continue new outpatient medications MAINTENANCE ISSUES -DVT prophylaxis; Lovenox 40 mg subcu daily -GI prophylaxis; not indicated -Mccoy catheter; not indicated -Nutrition; regular diet -Nicotine dependence; not required CODE STATUS-FULL CODE, I did review with this with the patient and at the present time he would like full resuscitation. He understands poor prognosis for survival if he does require intubation. ADMISSION STATUS-patient will be admitted to inpatient status, expect at least a 2 night hospital stay for evaluation and management of problems as outlined above. At the time of this admission I do not reasonably expected evaluation and management of this problem will require more than a 96 hour hospital stay. DISPOSITION-anticipate discharge to home after the hospital stay. PRIMARY CARE PROVIDER- - Mortality Measure Prognosis:: Poor
[2020-01-19] MEDS ORDERED: Polyethylene Glycol 3350 Powder 17 GM Packet PO PRN (17:59)
[2020-01-19] MEDS ORDERED: Sodium Chloride 0.9% 10 ML Syringe FLUSH PRN (17:59)
[2020-01-19] MEDS: Acetaminophen 325 MG Tab PO PRN (18:41)
[2020-01-19] MEDS: atorvaSTATin 20 MG Tab PO SCH (20:31)
[2020-01-19] MEDS: Enoxaparin 40 MG/0.4 ML Syringe SUBCUT SCH (20:31)
[2020-01-19] MEDS: lamoTRIgine 100 MG Tab PO SCH (20:32)
[2020-01-19] MEDS: carBAMazepine 200 MG Tab PO SCH (20:32)
[2020-01-20] MEDS: Ondansetron 4 MG/2 ML SDV IV PRN ×2 (00:24→12:54)
[2020-01-20] MEDS ORDERED: LORazepam 2 MG/ML SDV IVPUSH ONE (00:51)
[2020-01-20] MEDS: Albuterol 8 GM Inhaler INH PRN (01:02)
[2020-01-20] MEDS: lamoTRIgine 100 MG Tab PO SCH ×2 (08:42→20:00)
[2020-01-20] MEDS: carBAMazepine 200 MG Tab PO SCH ×2 (08:42→20:00)
[2020-01-20] MEDS: Fenofibrate,Micronized 67 MG Cap PO SCH (08:42)
[2020-01-20] MEDS: Aspirin 81 MG Tab.EC PO SCH (08:42)
[2020-01-20] MEDS: Magnesium Oxide 400 MG Tab PO SCH (08:42)
[2020-01-20] MEDS: Dexamethasone 4 MG/ML SDV IVPUSH SCH (08:43)
[2020-01-20] MEDS: Acetaminophen 325 MG Tab PO PRN (08:55)
--- NOTE | 2020-01-20 10:28 | CR ---
CHEST: Portable 01/19/2020 3:22 PM CLINICAL HISTORY:Hypoxia,: covid COMPARISON:01/02/2020 FINDINGS: Heart size is normal pulmonary vascularity is obscured by diffuse bilateral infiltrates. Patient has permanent cardiac pacer. There are atherosclerotic changes in the aorta. Impression: New diffuse bilateral pulmonary infiltrates.
--- NOTE | 2020-01-20 12:19 | PCM.PN ---
- General Info Date of Service: 01/20/20 Admission Dx/Problem (Free Text): 1. COVID 19 PNA 2. Acute hypoxia Subjective Update: Mr. Black was seen on the COVID 19 unit at [facility] on 01/20/2020. Patient is on 15 L NC oxygen and desaturates significantly with severe coughing fits, movement or mildly taxing activities. The patient, otherwise, is stable with respect to his other comorbidities. Patient is candidate for and is receiving convalescent serum, remdesivir, and dexamethasone. Denies any other issues. Functional Status: Reports: Pain Controlled, Tolerating Diet - Review of Systems General: Reports: Fever, Weakness, Fatigue, Malaise Pulmonary: Reports: Shortness of Breath, Cough Cardiovascular: Reports: Chest Pain Gastrointestinal: Reports: No Symptoms Neurological: Reports: No Symptoms Psychiatric: Reports: No Symptoms - Patient Data Vitals - Most Recent: Last Vital Signs Temp 97.4 F 01/20/20 11:17 Pulse 71 01/20/20 11:17 Resp 20 01/20/20 11:17 BP 127/67 01/20/20 11:17 Pulse Ox 96 01/20/20 11:17 Weight - Most Recent: 205 lb I&O - Last 24 Hours: Intake & Output 01/19/20 01/20/20 01/20/20 22:59 06:59 14:59 Intake Total 300 720 Output Total 400 500 Balance -400 300 220 Lab Results Last 24 Hours: Laboratory Results - last 24 hr 01/19/20 01/19/20 01/19/20 Range/Units 15:04 15:04 15:04 WBC 8.4 (4.5-11.0) K/uL RBC 4.36 (4.30-5.90) M/uL Hgb 13.5 (12.0-15.0) g/dL Hct 39.2 L (40.0-54.0) % MCV 90 (80-98) fL MCH 31 (27-31) pg MCHC 34 (32-36) % Plt Count 185 (150-400) K/uL Neut % (Auto) 88 H (36-66) % Lymph % (Auto) 6 L (24-44) % [place] % (Auto) 6 (2-6) % Eos % (Auto) 1 L (2-4) % Baso % (Auto) 0 (0-1) % PT (9.5-12.0) sec INR (0.80-1.20) APTT (27.0-36.0) sec D-Dimer, Quantitative (0.0-400.0) ng/mL Sodium 132 L (140-148) mmol/L Potassium 3.4 L (3.6-5.2) mmol/L Chloride 97 L (100-108) mmol/L Carbon Dioxide 24 (21-32) mmol/L Anion Gap 14.4 H (5.0-14.0) mmol/L BUN 12 (7-18) mg/dL Creatinine 0.9 (0.8-1.3) mg/dL Est Cr Clr Drug Dosing 77.46 mL/min Estimated GFR (MDRD) > 60 (>60) Glucose 103 (74-106) mg/dL Lactic Acid 2.4 H (0.4-2.0) mmol/L Calcium 8.7 (8.5-10.1) mg/dL Ferritin > 1000 H (8-388) ng/ml Total Bilirubin 0.4 (0.2-1.0) mg/dL AST 31 D (15-37) U/L ALT 23 (12-78) U/L Alkaline Phosphatase 44 L (46-116) U/L C-Reactive Protein (0.0-0.3) mg/dL Total Protein 6.7 (6.4-8.2) g/dL Albumin 2.9 L (3.4-5.0) g/dL Globulin 3.8 H (2.3-3.5) g/dL Albumin/Globulin Ratio 0.8 L (1.2-2.2) Blood Type 01/19/20 01/19/20 01/19/20 Range/Units 15:04 15:04 15:04 WBC (4.5-11.0) K/uL RBC (4.30-5.90) M/uL Hgb (12.0-15.0) g/dL Hct (40.0-54.0) % MCV (80-98) fL MCH (27-31) pg MCHC (32-36) % Plt Count (150-400) K/uL Neut % (Auto) (36-66) % Lymph % (Auto) (24-44) % [place] % (Auto) (2-6) % Eos % (Auto) (2-4) % Baso % (Auto) (0-1) % PT 10.0 (9.5-12.0) sec INR 0.92 (0.80-1.20) APTT 31.3 (27.0-36.0) sec D-Dimer, Quantitative 736 H (0.0-400.0) ng/mL Sodium (140-148) mmol/L Potassium (3.6-5.2) mmol/L Chloride (100-108) mmol/L Carbon Dioxide (21-32) mmol/L Anion Gap (5.0-14.0) mmol/L BUN (7-18) mg/dL Creatinine (0.8-1.3) mg/dL Est Cr Clr Drug Dosing mL/min Estimated GFR (MDRD) (>60) Glucose (74-106) mg/dL Lactic Acid (0.4-2.0) mmol/L Calcium (8.5-10.1) mg/dL Ferritin (8-388) ng/ml Total Bilirubin (0.2-1.0) mg/dL AST (15-37) U/L ALT (12-78) U/L Alkaline Phosphatase (46-116) U/L C-Reactive Protein (0.0-0.3) mg/dL Total Protein (6.4-8.2) g/dL Albumin (3.4-5.0) g/dL Globulin (2.3-3.5) g/dL Albumin/Globulin Ratio (1.2-2.2) Blood Type 01/19/20 01/20/20 01/20/20 Range/Units 15:04 05:05 05:05 WBC 8.3 (4.5-11.0) K/uL RBC 4.01 L (4.30-5.90) M/uL Hgb 12.4 (12.0-15.0) g/dL Hct 36.4 L (40.0-54.0) % MCV 91 (80-98) fL MCH 31 (27-31) pg MCHC 34 (32-36) % Plt Count 201 (150-400) K/uL Neut % (Auto) 83 H (36-66) % Lymph % (Auto) 9 L (24-44) % [place] % (Auto) 8 H (2-6) % Eos % (Auto) 0 L (2-4) % Baso % (Auto) 0 (0-1) % PT (9.5-12.0) sec INR (0.80-1.20) APTT (27.0-36.0) sec D-Dimer, Quantitative 606 H (0.0-400.0) ng/mL Sodium (140-148) mmol/L Potassium (3.6-5.2) mmol/L Chloride (100-108) mmol/L Carbon Dioxide (21-32) mmol/L Anion Gap (5.0-14.0) mmol/L BUN (7-18) mg/dL Creatinine (0.8-1.3) mg/dL Est Cr Clr Drug Dosing mL/min Estimated GFR (MDRD) (>60) Glucose (74-106) mg/dL Lactic Acid (0.4-2.0) mmol/L Calcium (8.5-10.1) mg/dL Ferritin (8-388) ng/ml Total Bilirubin (0.2-1.0) mg/dL AST (15-37) U/L ALT (12-78) U/L Alkaline Phosphatase (46-116) U/L C-Reactive Protein 19.06 H (0.0-0.3) mg/dL Total Protein (6.4-8.2) g/dL Albumin (3.4-5.0) g/dL Globulin (2.3-3.5) g/dL Albumin/Globulin Ratio (1.2-2.2) Blood Type 01/20/20 01/20/20 Range/Units 05:05 09:00 WBC (4.5-11.0) K/uL RBC (4.30-5.90) M/uL Hgb (12.0-15.0) g/dL Hct (40.0-54.0) % MCV (80-98) fL MCH (27-31) pg MCHC (32-36) % Plt Count (150-400) K/uL Neut % (Auto) (36-66) % Lymph % (Auto) (24-44) % [place] % (Auto) (2-6) % Eos % (Auto) (2-4) % Baso % (Auto) (0-1) % PT (9.5-12.0) sec INR (0.80-1.20) APTT (27.0-36.0) sec D-Dimer, Quantitative (0.0-400.0) ng/mL Sodium 133 L (140-148) mmol/L Potassium 3.5 L (3.6-5.2) mmol/L Chloride 100 (100-108) mmol/L Carbon Dioxide 24 (21-32) mmol/L Anion Gap 12.5 (5.0-14.0) mmol/L BUN 10 (7-18) mg/dL Creatinine 0.8 (0.8-1.3) mg/dL Est Cr Clr Drug Dosing 87.15 mL/min Estimated GFR (MDRD) > 60 (>60) Glucose 122 H (74-106) mg/dL Lactic Acid (0.4-2.0) mmol/L Calcium 8.2 L (8.5-10.1) mg/dL Ferritin 998 H (8-388) ng/ml Total Bilirubin 0.3 (0.2-1.0) mg/dL AST 31 (15-37) U/L ALT 24 (12-78) U/L Alkaline Phosphatase 41 L (46-116) U/L C-Reactive Protein 18.54 H (0.0-0.3) mg/dL Total Protein 6.2 L (6.4-8.2) g/dL Albumin 2.6 L (3.4-5.0) g/dL Globulin 3.6 H (2.3-3.5) g/dL Albumin/Globulin Ratio 0.7 L (1.2-2.2) Blood Type O POSITIVE Med Orders - Current: Current Medications Acetaminophen (Tylenol) 650 mg PO Q4H PRN PRN Reason: Fever Greater Than 101 Last Admin: 01/20/20 08:55 Dose: 650 mg Documented by: Albuterol (Ventolin Hfa) 2 gm INH Q4H PRN PRN Reason: Shortness of Breath Last Admin: 01/20/20 01:02 Dose: 2 inhalation Documented by: Aspirin (Halfprin) 81 mg PO DAILY [facility] Last Admin: 01/20/20 08:42 Dose: 81 mg Documented by: Atorvastatin Calcium (Lipitor) 40 mg PO BEDTIME [facility] Last Admin: 01/19/20 20:31 Dose: 40 mg Documented by: Carbamazepine (Tegretol Tab) 400 mg PO BID [facility] Last Admin: 01/20/20 08:42 Dose: 400 mg Documented by: Dexamethasone (Dexamethasone) 6 mg IVPUSH DAILY [facility] Stop: 01/29/20 09:01 Last Admin: 01/20/20 08:43 Dose: 6 mg Documented by: Enoxaparin Sodium (Lovenox) 40 mg SUBCUT BEDTIME [facility] Last Admin: 01/19/20 20:31 Dose: 40 mg Documented by: Fenofibrate (Fenofibrate) 134 mg PO QAM [facility] Last Admin: 01/20/20 08:42 Dose: 134 mg Documented by: Remdesivir 100 mg/ Sodium (Chloride) 100 mls @ 100 mls/hr IV Q24H [facility] Stop: 01/23/20 15:59 Lamotrigine (Lamotrigine) 200 mg PO BID [facility] Last Admin: 01/20/20 08:42 Dose: 200 mg Documented by: Magnesium Oxide (Magnesium Oxide) 400 mg PO DAILY [facility] Last Admin: 01/20/20 08:42 Dose: 400 mg Documented by: Ondansetron HCl (Zofran) 4 mg IV Q4H PRN PRN Reason: Nausea/Vomiting Last Admin: 01/20/20 00:24 Dose: 4 mg Documented by: Polyethylene Glycol (Miralax) 17 gm PO DAILY PRN PRN Reason: Constipation Sodium Chloride (Saline Flush) 10 ml FLUSH ASDIRECTED PRN PRN Reason: Keep Vein Open Discontinued Medications Dexamethasone (Dexamethasone) 6 mg IVPUSH ONETIME ONE Stop: 01/19/20 14:42 Last Admin: 01/19/20 15:19 Dose: 6 mg Documented by: Remdesivir 200 mg/ Sodium (Chloride) 250 mls @ 250 mls/hr IV ONETIME ONE Stop: 01/19/20 14:41 Last Admin: 01/19/20 15:22 Dose: 250 mls/hr Documented by: Sodium Chloride (Normal Saline) 1,000 mls @ 500 mls/hr IV ASDIRECTED [facility] Last Admin: 01/19/20 15:19 Dose: 500 mls/hr Documented by: Lorazepam (Ativan) 1 mg IVPUSH ONETIME ONE Stop: 01/20/20 00:52 Last Admin: 01/20/20 01:02 Dose: 1 mg Documented by: - Exam Quality Assessment: Supplemental Oxygen, DVT Prophylaxis General: Alert, Oriented, Cooperative, Mild Distress Lungs: Decreased Breath Sounds, Crackles Cardiovascular: Regular Rate, Regular Rhythm GI/Abdominal Exam: Normal Bowel Sounds, Soft, Non-Tender, No Organomegaly, No Distention, No Abnormal Bruit Neurological: No New Focal Deficit Psy/Mental Status: Alert, Normal Affect, Normal Mood Sepsis Event Note - Evaluation Sepsis Screening Result: No Definite Risk - Focused Exam Vital Signs: Vital Signs Temp Temp Pulse Resp BP Pulse Ox Pulse Ox 01/20/20 11:17 97.4 F 71 20 127/67 96 01/20/20 09:25 98.5 F 01/20/20 08:55 212.2 F H 01/20/20 08:37 100.1 F 71 22 H 119/56 L 90 L 01/20/20 07:20 91 L 01/20/20 03:58 98.2 F 72 18 114/56 L 92 L 01/20/20 01:28 93 L 01/20/20 01:19 90 L 01/20/20 00:42 98.0 F 71 18 136/69 86 L - Problem List Review Problem List Initiated/Reviewed/Updated: Yes - My Orders Last 24 Hours: My Active Orders 01/21/20 05:00 C-REACTIVE PROTEIN [CHEM] DAILY CBC WITH AUTO DIFF [HEME] DAILY COMPREHENSIVE METABOLIC PN,CMP [CHEM] DAILY D-DIMER QUANTITATIVE [COAG] DAILY FERRITIN [CHEM] DAILY 01/22/20 05:00 C-REACTIVE PROTEIN [CHEM] DAILY CBC WITH AUTO DIFF [HEME] DAILY COMPREHENSIVE METABOLIC PN,CMP [CHEM] DAILY D-DIMER QUANTITATIVE [COAG] DAILY FERRITIN [CHEM] DAILY 01/23/20 05:00 C-REACTIVE PROTEIN [CHEM] DAILY CBC WITH AUTO DIFF [HEME] DAILY COMPREHENSIVE METABOLIC PN,CMP [CHEM] DAILY D-DIMER QUANTITATIVE [COAG] DAILY FERRITIN [CHEM] DAILY 01/24/20 05:00 C-REACTIVE PROTEIN [CHEM] DAILY CBC WITH AUTO DIFF [HEME] DAILY COMPREHENSIVE METABOLIC PN,CMP [CHEM] DAILY D-DIMER QUANTITATIVE [COAG] DAILY FERRITIN [CHEM] DAILY 01/25/20 05:00 C-REACTIVE PROTEIN [CHEM] DAILY CBC WITH AUTO DIFF [HEME] DAILY COMPREHENSIVE METABOLIC PN,CMP [CHEM] DAILY D-DIMER QUANTITATIVE [COAG] DAILY FERRITIN [CHEM] DAILY - Plan Plan:: ASSESSMENT AND PLAN SECONDARY TO [id number] for the past few days, increased dyspnea over the last 24 hours. Progressive weakness and nonproductive cough. -Saline lock IV -Remdesivir 200 mg IV given in emergency department, 100 mg IV daily. Now on day 04/24 -Dexamethasone 6 mg IV for 5 to 10 days (Day 04/24 or 04/29 depending) -Convalescent plasma 1 unit daily (Day 03/24 - first dose today) -Isolation -Lasix 40 mg IV x 1, monitor for effect. HYPOXIC RESPIRATORY COMPROMISE-secondary to COVID-19 and bilateral pneumonia -Supplemental oxygen as needed -Continuous pulse oximetry -Patient is full code and is willing/desirous of intubation if needed SEIZURE DISORDER -Continue new outpatient medications MAINTENANCE ISSUES -DVT prophylaxis; Lovenox 40 mg subcu daily -GI prophylaxis; not indicated -Mccoy catheter; not indicated -Nutrition; regular diet -Nicotine dependence; not required CODE STATUS-FULL CODE, I did review with this with the patient and at the present time he would like full resuscitation. He understands poor prognosis for survival if he does require intubation. ADMISSION STATUS-patient will be admitted to inpatient status, expect at least a 2 night hospital stay for evaluation and management of problems as outlined above. At the time of this admission I do not reasonably expected evaluation and management of this problem will require more than a 96 hour hospital stay. DISPOSITION-anticipate discharge to home after the hospital stay. PRIMARY CARE PROVIDER-
[2020-01-20] MEDS ORDERED: Furosemide 40 MG/4 ML VIAL IVPUSH ONE (12:30)
[2020-01-20] MEDS: REMDESIVIR (EUA) 100 MG in Sodium Chloride 0.9% 100 ML IV SCH (16:22)
[2020-01-20] MEDS: Enoxaparin 40 MG/0.4 ML Syringe SUBCUT SCH (20:00)
[2020-01-20] MEDS: atorvaSTATin 20 MG Tab PO SCH (20:00)
[2020-01-21] MEDS: Albuterol 8 GM Inhaler INH PRN ×2 (00:32→18:03)
[2020-01-21] MEDS ORDERED: Furosemide 40 MG/4 ML VIAL IVPUSH ONE ×2 (00:44→09:00)
[2020-01-21] MEDS ORDERED: Furosemide 40 MG/4 ML VIAL ONE (00:53)
[2020-01-21] MEDS: Acetaminophen 325 MG Tab PO PRN ×2 (00:56→20:00)
[2020-01-21] MEDS: Ondansetron 4 MG/2 ML SDV IV PRN (00:56)
[2020-01-21] MEDS ORDERED: Potassium Chloride Riders 40 MEQ in Premix Bag 1 BAG IV ONE (08:39)
[2020-01-21] MEDS: Dexamethasone 4 MG/ML SDV IVPUSH SCH (09:44)
[2020-01-21] MEDS: Aspirin 81 MG Tab.EC PO SCH (10:10)
[2020-01-21] MEDS: Fenofibrate,Micronized 67 MG Cap PO SCH (10:10)
[2020-01-21] MEDS: Magnesium Oxide 400 MG Tab PO SCH (10:10)
[2020-01-21] MEDS: lamoTRIgine 100 MG Tab PO SCH ×2 (10:10→20:15)
[2020-01-21] MEDS: carBAMazepine 200 MG Tab PO SCH ×2 (10:10→20:15)
[2020-01-21] MEDS: Potassium Chloride 20 MEQ, Lidocaine 1% 2 ML in Sodium Chloride 0.9% 100 ML IV SCH ×2 (10:13→12:31)
--- NOTE | 2020-01-21 13:22 | PCM.PN ---
- General Info Date of Service: 01/21/20 Subjective Update: Mr. Black was seen on the COVID 19 unit at [facility] on 01/20/2020. Patient is on 15 L NC oxygen and desaturates significantly with severe coughing fits, movement or mildly taxing activities. The patient, otherwise, is stable with respect to his other comorbidities. Patient is candidate for and is receiving convalescent serum, remdesivir, and dexamethasone. Denies any other issues. Overnight between 01/19-01/20 the patient began to have more issues with oxygenation, needing additional oxygen. The patient also had a presyncopal episode. The creatinine has remained stable but he is a little hypokalemic this AM. He is a little more stable this AM. He has not yet required BiPAP. Functional Status: Reports: Pain Controlled - Review of Systems General: Reports: No Symptoms HEENT: Reports: No Symptoms Pulmonary: Reports: Shortness of Breath, Cough Cardiovascular: Reports: No Symptoms Gastrointestinal: Reports: No Symptoms Neurological: Reports: No Symptoms Psychiatric: Reports: No Symptoms - Patient Data Vitals - Most Recent: Last Vital Signs Temp 97.6 F 01/21/20 11:08 Pulse 80 01/21/20 11:08 Resp 18 01/21/20 11:08 BP 111/54 L 01/21/20 11:08 Pulse Ox 92 L 01/21/20 12:42 Weight - Most Recent: 204 lb 15.984 oz I&O - Last 24 Hours: Intake & Output 01/20/20 01/21/20 01/21/20 22:59 06:59 14:59 Intake Total 580 240 100 Output Total 900 1921 185 Balance -320 -1681 -85 Lab Results Last 24 Hours: Laboratory Results - last 24 hr 01/20/20 01/21/20 01/21/20 Range/Units 13:25 01:30 05:35 WBC 10.3 (4.5-11.0) K/uL RBC 3.91 L (4.30-5.90) M/uL Hgb 12.1 (12.0-15.0) g/dL Hct 35.4 L (40.0-54.0) % MCV 91 (80-98) fL MCH 31 (27-31) pg MCHC 34 (32-36) % Plt Count 266 (150-400) K/uL Neut % (Auto) 82 H (36-66) % Lymph % (Auto) 6 L (24-44) % [place] % (Auto) 12 H (2-6) % Eos % (Auto) 0 L (2-4) % Baso % (Auto) 0 (0-1) % D-Dimer, Quantitative (0.0-400.0) ng/mL Puncture Site Rt radial R brachial ABG pH 7.475 H 7.503 H (7.350-7.450) ABG pCO2 29.2 L 31.3 L (35.0-42.0) mmHg ABG pO2 78.3 43.7 L* (75.0-100.0) mmHg ABG HCO3 21.3 L 24.4 (22.0-26.0) mmol/L ABG Total CO2 18.6 L 21.2 L (23.0-27.0) mmol/L ABG O2 Saturation 95.8 80.3 L (95.0-98.0) % ABG O2 Content 17.8 15.2 (15.0-23.0) %vol ABG Base Excess -0.9 2.3 mm/L ABG Hemoglobin 13.5 13.8 (13.5-18.0) g/dL ABG Oxyhemoglobin 93.5 78.6 % ABG Carboxyhemoglobin 1.5 1.0 (0.0-1.6) % ABG Methemoglobin 0.9 1.1 % Carlos Test Pass O2 Delivery Device Hi flow nasal cannu Non rebr mask Oxygen Flow Rate 15.0 L Sodium (140-148) mmol/L Potassium (3.6-5.2) mmol/L Chloride (100-108) mmol/L Carbon Dioxide (21-32) mmol/L Anion Gap (5.0-14.0) mmol/L BUN (7-18) mg/dL Creatinine (0.8-1.3) mg/dL Est Cr Clr Drug Dosing mL/min Estimated GFR (MDRD) (>60) Glucose (74-106) mg/dL Calcium (8.5-10.1) mg/dL Ferritin (8-388) ng/ml Total Bilirubin (0.2-1.0) mg/dL AST (15-37) U/L ALT (12-78) U/L Alkaline Phosphatase (46-116) U/L C-Reactive Protein (0.0-0.3) mg/dL Total Protein (6.4-8.2) g/dL Albumin (3.4-5.0) g/dL Globulin (2.3-3.5) g/dL Albumin/Globulin Ratio (1.2-2.2) 01/21/20 01/21/20 Range/Units 05:35 05:35 WBC (4.5-11.0) K/uL RBC (4.30-5.90) M/uL Hgb (12.0-15.0) g/dL Hct (40.0-54.0) % MCV (80-98) fL MCH (27-31) pg MCHC (32-36) % Plt Count (150-400) K/uL Neut % (Auto) (36-66) % Lymph % (Auto) (24-44) % [place] % (Auto) (2-6) % Eos % (Auto) (2-4) % Baso % (Auto) (0-1) % D-Dimer, Quantitative 645 H (0.0-400.0) ng/mL Puncture Site ABG pH (7.350-7.450) ABG pCO2 (35.0-42.0) mmHg ABG pO2 (75.0-100.0) mmHg ABG HCO3 (22.0-26.0) mmol/L ABG Total CO2 (23.0-27.0) mmol/L ABG O2 Saturation (95.0-98.0) % ABG O2 Content (15.0-23.0) %vol ABG Base Excess mm/L ABG Hemoglobin (13.5-18.0) g/dL ABG Oxyhemoglobin % ABG Carboxyhemoglobin (0.0-1.6) % ABG Methemoglobin % Carlos Test O2 Delivery Device Oxygen Flow Rate L Sodium 136 L (140-148) mmol/L Potassium 2.8 L* (3.6-5.2) mmol/L Chloride 99 L (100-108) mmol/L Carbon Dioxide 26 (21-32) mmol/L Anion Gap 13.8 (5.0-14.0) mmol/L BUN 11 (7-18) mg/dL Creatinine 0.8 (0.8-1.3) mg/dL Est Cr Clr Drug Dosing 86.86 mL/min Estimated GFR (MDRD) > 60 (>60) Glucose 127 H (74-106) mg/dL Calcium 8.1 L (8.5-10.1) mg/dL Ferritin 938 H (8-388) ng/ml Total Bilirubin 0.4 (0.2-1.0) mg/dL AST 27 (15-37) U/L ALT 24 (12-78) U/L Alkaline Phosphatase 39 L (46-116) U/L C-Reactive Protein 12.33 H (0.0-0.3) mg/dL Total Protein 5.8 L (6.4-8.2) g/dL Albumin 2.4 L (3.4-5.0) g/dL Globulin 3.4 (2.3-3.5) g/dL Albumin/Globulin Ratio 0.7 L (1.2-2.2) Med Orders - Current: Current Medications Acetaminophen (Tylenol) 650 mg PO Q4H PRN PRN Reason: Fever Greater Than 101 Last Admin: 01/21/20 00:56 Dose: 650 mg Documented by: Albuterol (Ventolin Hfa) 2 gm INH Q4H PRN PRN Reason: Shortness of Breath Last Admin: 01/21/20 00:32 Dose: 2 inhalation Documented by: Aspirin (Halfprin) 81 mg PO DAILY [facility] Last Admin: 01/21/20 10:10 Dose: 81 mg Documented by: Atorvastatin Calcium (Lipitor) 40 mg PO BEDTIME [facility] Last Admin: 01/20/20 20:00 Dose: 40 mg Documented by: Carbamazepine (Tegretol Tab) 400 mg PO BID [facility] Last Admin: 01/21/20 10:10 Dose: 400 mg Documented by: Dexamethasone (Dexamethasone) 6 mg IVPUSH DAILY [facility] Stop: 01/29/20 09:01 Last Admin: 01/21/20 09:44 Dose: 6 mg Documented by: Enoxaparin Sodium (Lovenox) 40 mg SUBCUT BEDTIME [facility] Last Admin: 01/20/20 20:00 Dose: 40 mg Documented by: Fenofibrate (Fenofibrate) 134 mg PO QAM [facility] Last Admin: 01/21/20 10:10 Dose: 134 mg Documented by: Remdesivir 100 mg/ Sodium (Chloride) 100 mls @ 100 mls/hr IV Q24H [facility] Stop: 01/23/20 15:59 Last Admin: 01/20/20 16:22 Dose: 100 mls/hr Documented by: Potassium Chloride 20 meq/Lidocaine HCl 2 ml/ Sodium Chloride 112 mls @ 56 mls/hr IV Q2H [facility] Stop: 01/21/20 13:59 Last Admin: 01/21/20 12:31 Dose: 56 mls/hr Documented by: Lamotrigine (Lamotrigine) 200 mg PO BID [facility] Last Admin: 01/21/20 10:10 Dose: 200 mg Documented by: Magnesium Oxide (Magnesium Oxide) 400 mg PO DAILY [facility] Last Admin: 01/21/20 10:10 Dose: 400 mg Documented by: Ondansetron HCl (Zofran) 4 mg IV Q4H PRN PRN Reason: Nausea/Vomiting Last Admin: 01/21/20 00:56 Dose: 4 mg Documented by: Polyethylene Glycol (Miralax) 17 gm PO DAILY PRN PRN Reason: Constipation Sodium Chloride (Saline Flush) 10 ml FLUSH ASDIRECTED PRN PRN Reason: Keep Vein Open Discontinued Medications Dexamethasone (Dexamethasone) 6 mg IVPUSH ONETIME ONE Stop: 01/19/20 14:42 Last Admin: 01/19/20 15:19 Dose: 6 mg Documented by: Furosemide (Lasix) 40 mg IVPUSH ONETIME ONE Stop: 01/20/20 12:31 Last Admin: 01/20/20 12:54 Dose: 40 mg Documented by: Furosemide (Lasix) 40 mg IVPUSH ONETIME ONE Stop: 01/21/20 09:01 Furosemide (Lasix) 40 mg IVPUSH ONETIME ONE Stop: 01/21/20 00:45 Last Admin: 01/21/20 00:58 Dose: 40 mg Documented by: Furosemide (Lasix) Confirm Administered Dose 40 mg .ROUTE .STK-MED ONE Stop: 01/21/20 00:54 Last Admin: 01/21/20 00:59 Dose: Not Given Documented by: Remdesivir 200 mg/ Sodium (Chloride) 250 mls @ 250 mls/hr IV ONETIME ONE Stop: 01/19/20 14:41 Last Admin: 01/19/20 15:22 Dose: 250 mls/hr Documented by: Sodium Chloride (Normal Saline) 1,000 mls @ 500 mls/hr IV ASDIRECTED [facility] Last Admin: 01/19/20 15:19 Dose: 500 mls/hr Documented by: Lorazepam (Ativan) 1 mg IVPUSH ONETIME ONE Stop: 01/20/20 00:52 Last Admin: 01/20/20 01:02 Dose: 1 mg Documented by: - Exam Quality Assessment: Supplemental Oxygen, Urine Catheter, DVT Prophylaxis General: Alert, Oriented, Moderate Distress Lungs: Crackles, Other (increased work of breathing) Cardiovascular: Regular Rate, Regular Rhythm GI/Abdominal Exam: Normal Bowel Sounds, Soft, Non-Tender Neurological: No New Focal Deficit, Normal Speech Psy/Mental Status: Alert, Normal Affect, Normal Mood Sepsis Event Note - Evaluation Sepsis Screening Result: Possible Sepsis Risk - Focused Exam Vital Signs: Vital Signs Temp Pulse Resp BP Pulse Ox Pulse Ox 01/21/20 12:42 92 L 01/21/20 11:08 97.6 F 80 18 111/54 L 95 01/21/20 10:05 90 L 01/21/20 08:02 97.7 F 70 16 99/50 L 91 L 01/21/20 02:52 99.4 F 24 H 124/61 92 L 01/21/20 01:27 34 H 121/62 86 L 01/21/20 01:23 89 L - Problem List Review Problem List Initiated/Reviewed/Updated: Yes - My Orders Last 24 Hours: My Active Orders 01/21/20 01:14 Urinary Catheter Assessment [RC] ASDIRECTED 01/21/20 01:15 Insert Mccoy Catheter [Insert Urinary Catheter] [OM.PC] Q24H 01/21/20 10:00 Potassium Chloride 20 meq Lidocaine 1% [Xylocaine 1%] 2 ml Sodium Chloride 0.9% [Normal Saline] 100 ml IV Q2H 01/21/20 14:00 POTASSIUM,K [CHEM] Routine 01/22/20 05:00 C-REACTIVE PROTEIN [CHEM] DAILY CBC WITH AUTO DIFF [HEME] DAILY COMPREHENSIVE METABOLIC PN,CMP [CHEM] DAILY D-DIMER QUANTITATIVE [COAG] DAILY FERRITIN [CHEM] DAILY 01/23/20 05:00 C-REACTIVE PROTEIN [CHEM] DAILY CBC WITH AUTO DIFF [HEME] DAILY COMPREHENSIVE METABOLIC PN,CMP [CHEM] DAILY D-DIMER QUANTITATIVE [COAG] DAILY FERRITIN [CHEM] DAILY 01/24/20 05:00 C-REACTIVE PROTEIN [CHEM] DAILY CBC WITH AUTO DIFF [HEME] DAILY COMPREHENSIVE METABOLIC PN,CMP [CHEM] DAILY D-DIMER QUANTITATIVE [COAG] DAILY FERRITIN [CHEM] DAILY 01/25/20 05:00 C-REACTIVE PROTEIN [CHEM] DAILY CBC WITH AUTO DIFF [HEME] DAILY COMPREHENSIVE METABOLIC PN,CMP [CHEM] DAILY D-DIMER QUANTITATIVE [COAG] DAILY FERRITIN [CHEM] DAILY - Plan Plan:: ASSESSMENT AND PLAN SECONDARY TO [id number] for the past few days, increased dyspnea over the last 24 hours. Progressive weakness and nonproductive cough. His condition remains rather tenuous and he has required increasing amounts of oxygen. He did have a pre-syncopal episode last evening that he recovered from. This was in the context of an episode of emesis that also was associated with a significant desaturation into the mid 70's. The patient at this time is stable on 15 L and has thus far not required NiPPV. -Saline lock IV -Remdesivir 200 mg IV given in emergency department, 100 mg IV daily. Now on day 05/22 -Dexamethasone 6 mg IV for 5 to 10 days (Day 05/22 or 05/27 depending) -Convalescent plasma 1 unit daily (Day 04/24 - first dose on 01/19) -Isolation -Lasix 40 mg IV x 1, monitor for effect. HYPOXIC RESPIRATORY COMPROMISE-secondary to COVID-19 and bilateral pneumonia -Supplemental oxygen as needed -Continuous pulse oximetry -Patient is full code and is willing/desirous of intubation if needed SEIZURE DISORDER -Continue new outpatient medications HYPOKALEMIA K 2.8 this AM - Gave 40 mEq IV x 1 - Recheck K this PM - Follow up K in AM labs on 01/21 MAINTENANCE ISSUES -DVT prophylaxis; Lovenox 40 mg subcu daily -GI prophylaxis; not indicated -Mccoy catheter; not indicated -Nutrition; regular diet -Nicotine dependence; not required CODE STATUS-FULL CODE, I did review with this with the patient and at the pre sent time he would like full resuscitation. He understands poor prognosis for survival if he does require intubation. ADMISSION STATUS-patient will be admitted to inpatient status, expect at least a 2 night hospital stay for evaluation and management of problems as outlined above. At the time of this admission I do not reasonably expected evaluation and management of this problem will require more than a 96 hour hospital stay. DISPOSITION-anticipate discharge to home after the hospital stay. PRIMARY CARE PROVIDER- Chato Arellano M.D. Hospitalist 21 January 2020
[2020-01-21] MEDS: REMDESIVIR (EUA) 100 MG in Sodium Chloride 0.9% 100 ML IV SCH (14:46)
[2020-01-21] MEDS: Enoxaparin 40 MG/0.4 ML Syringe SUBCUT SCH (20:15)
[2020-01-21] MEDS: atorvaSTATin 20 MG Tab PO SCH (20:15)
[2020-01-22] MEDS ORDERED: Potassium Chloride 20 MEQ in Premix Bag 1 BAG IV SCH (06:12)
--- NOTE | 2020-01-22 07:18 | PCM.SN.2 ---
- Free Text/Narrative Note: time 0610 call from Nursing staff O: Potassium 2.5 A: Hypokalemia P: IV Potassium 40 meq. now, then recheck Potassium at 1300. continue present plan of care.
[2020-01-22] MEDS: Albuterol 8 GM Inhaler INH PRN (07:25)
[2020-01-22] MEDS ORDERED: Potassium Chloride 20 MEQ, Lidocaine 1% 2 ML in Sodium Chloride 0.9% 100 ML IV SCH ×2 (09:00)
[2020-01-22] MEDS ORDERED: Potassium Chloride 20 MEQ Tab.ER PO ONE ×2 (09:00→15:15)
--- NOTE | 2020-01-22 09:22 | PCM.PN ---
- General Info Date of Service: 01/22/20 Subjective Update: Mr. Black continues to experience significant respiratory compromise related to his underlying Covid. Currently he is on the high flow oxygen system with increased respiratory rate and borderline oxygenation. - Review of Systems General: Reports: Weakness, Fatigue. Denies: Fever, Chills Pulmonary: Reports: Shortness of Breath, Cough. Denies: Pleuritic Chest Pain, Sputum, Hemoptysis, Wheezing Cardiovascular: Reports: Dyspnea on Exertion. Denies: Chest Pain, Palpitations, Orthopnea, PND, Edema, Lightheadedness Gastrointestinal: Reports: No Symptoms - Patient Data Vitals - Most Recent: Last Vital Signs Temp 99.8 F 01/22/20 07:27 Pulse 77 01/22/20 07:27 Resp 28 H 01/22/20 07:27 BP 126/62 01/22/20 07:27 Pulse Ox 86 L 01/22/20 07:27 Weight - Most Recent: 204 lb 15.984 oz I&O - Last 24 Hours: Intake & Output 01/21/20 01/22/20 01/22/20 22:59 06:59 14:59 Intake Total 1609 300 Output Total 200 400 150 Balance 1409 -100 -150 Lab Results Last 24 Hours: Laboratory Results - last 24 hr 01/20/20 01/21/20 01/22/20 Range/Units 09:00 15:47 05:23 WBC 8.8 (4.5-11.0) K/uL RBC 3.88 L (4.30-5.90) M/uL Hgb 12.0 (12.0-15.0) g/dL Hct 35.0 L (40.0-54.0) % MCV 90 (80-98) fL MCH 31 (27-31) pg MCHC 34 (32-36) % Plt Count 315 (150-400) K/uL Neut % (Auto) 77 H (36-66) % Lymph % (Auto) 10 L (24-44) % [place] % (Auto) 12 H (2-6) % Eos % (Auto) 1 L (2-4) % Baso % (Auto) 1 (0-1) % D-Dimer, Quantitative (0.0-400.0) ng/mL Sodium (140-148) mmol/L Potassium 3.0 L (3.6-5.2) mmol/L Chloride (100-108) mmol/L Carbon Dioxide (21-32) mmol/L Anion Gap (5.0-14.0) mmol/L BUN (7-18) mg/dL Creatinine (0.8-1.3) mg/dL Est Cr Clr Drug Dosing mL/min Estimated GFR (MDRD) (>60) Glucose (74-106) mg/dL Calcium (8.5-10.1) mg/dL Ferritin (8-388) ng/ml Total Bilirubin (0.2-1.0) mg/dL AST (15-37) U/L ALT (12-78) U/L Alkaline Phosphatase (46-116) U/L C-Reactive Protein (0.0-0.3) mg/dL Total Protein (6.4-8.2) g/dL Albumin (3.4-5.0) g/dL Globulin (2.3-3.5) g/dL Albumin/Globulin Ratio (1.2-2.2) Blood Type O POSITIVE 01/22/20 01/22/20 Range/Units 05:23 05:23 WBC (4.5-11.0) K/uL RBC (4.30-5.90) M/uL Hgb (12.0-15.0) g/dL Hct (40.0-54.0) % MCV (80-98) fL MCH (27-31) pg MCHC (32-36) % Plt Count (150-400) K/uL Neut % (Auto) (36-66) % Lymph % (Auto) (24-44) % [place] % (Auto) (2-6) % Eos % (Auto) (2-4) % Baso % (Auto) (0-1) % D-Dimer, Quantitative 2710 H (0.0-400.0) ng/mL Sodium 135 L (140-148) mmol/L Potassium 2.6 L* (3.6-5.2) mmol/L Chloride 100 (100-108) mmol/L Carbon Dioxide 24 (21-32) mmol/L Anion Gap 13.6 (5.0-14.0) mmol/L BUN 14 (7-18) mg/dL Creatinine 0.7 L (0.8-1.3) mg/dL Est Cr Clr Drug Dosing 99.26 mL/min Estimated GFR (MDRD) > 60 (>60) Glucose 114 H (74-106) mg/dL Calcium 8.1 L (8.5-10.1) mg/dL Ferritin 839 H (8-388) ng/ml Total Bilirubin 0.4 (0.2-1.0) mg/dL AST 32 (15-37) U/L ALT 28 (12-78) U/L Alkaline Phosphatase 42 L (46-116) U/L C-Reactive Protein 15.11 H (0.0-0.3) mg/dL Total Protein 5.8 L (6.4-8.2) g/dL Albumin 2.3 L (3.4-5.0) g/dL Globulin 3.5 (2.3-3.5) g/dL Albumin/Globulin Ratio 0.7 L (1.2-2.2) Blood Type Med Orders - Current: Current Medications Acetaminophen (Tylenol) 650 mg PO Q4H PRN PRN Reason: Fever Greater Than 101 Last Admin: 01/21/20 20:00 Dose: 650 mg Documented by: Albuterol (Ventolin Hfa) 2 gm INH Q4H PRN PRN Reason: Shortness of Breath Last Admin: 01/22/20 07:25 Dose: 2 inhalation Documented by: Aspirin (Halfprin) 81 mg PO DAILY [facility] Last Admin: 01/21/20 10:10 Dose: 81 mg Documented by: Atorvastatin Calcium (Lipitor) 40 mg PO BEDTIME [facility] Last Admin: 01/21/20 20:15 Dose: 40 mg Documented by: Carbamazepine (Tegretol Tab) 400 mg PO BID [facility] Last Admin: 01/21/20 20:15 Dose: 400 mg Documented by: Dexamethasone (Dexamethasone) 6 mg IVPUSH DAILY [facility] Stop: 01/29/20 09:01 Last Admin: 01/21/20 09:44 Dose: 6 mg Documented by: Enoxaparin Sodium (Lovenox) 40 mg SUBCUT BEDTIME [facility] Last Admin: 01/21/20 20:15 Dose: 40 mg Documented by: Fenofibrate (Fenofibrate) 134 mg PO QAM [facility] Last Admin: 01/21/20 10:10 Dose: 134 mg Documented by: Furosemide (Lasix) 20 mg IVPUSH NOW ONE Stop: 01/22/20 09:10 Remdesivir 100 mg/ Sodium (Chloride) 100 mls @ 100 mls/hr IV Q24H [facility] Stop: 01/23/20 15:59 Last Admin: 01/21/20 14:46 Dose: 100 mls/hr Documented by: Potassium Chloride 20 meq/Lidocaine HCl 2 ml/ Sodium Chloride 112 mls @ 56 mls/hr IV Q2H [facility] Stop: 01/22/20 10:59 Potassium Chloride 20 meq/Lidocaine HCl 2 ml/ Sodium Chloride 112 mls @ 56 mls/hr IV Q2H [facility] Stop: 01/22/20 12:59 Lamotrigine (Lamotrigine) 200 mg PO BID [facility] Last Admin: 01/21/20 20:15 Dose: 200 mg Documented by: Magnesium Oxide (Magnesium Oxide) 400 mg PO DAILY [facility] Last Admin: 01/21/20 10:10 Dose: 400 mg Documented by: Ondansetron HCl (Zofran) 4 mg IV Q4H PRN PRN Reason: Nausea/Vomiting Last Admin: 01/21/20 00:56 Dose: 4 mg Documented by: Polyethylene Glycol (Miralax) 17 gm PO DAILY PRN PRN Reason: Constipation Sodium Chloride (Saline Flush) 10 ml FLUSH ASDIRECTED PRN PRN Reason: Keep Vein Open Discontinued Medications Dexamethasone (Dexamethasone) 6 mg IVPUSH ONETIME ONE Stop: 01/19/20 14:42 Last Admin: 01/19/20 15:19 Dose: 6 mg Documented by: Furosemide (Lasix) 40 mg IVPUSH ONETIME ONE Stop: 01/20/20 12:31 Last Admin: 01/20/20 12:54 Dose: 40 mg Documented by: Furosemide (Lasix) 40 mg IVPUSH ONETIME ONE Stop: 01/21/20 09:01 Furosemide (Lasix) 40 mg IVPUSH ONETIME ONE Stop: 01/21/20 00:45 Last Admin: 01/21/20 00:58 Dose: 40 mg Documented by: Furosemide (Lasix) Confirm Administered Dose 40 mg .ROUTE .STK-MED ONE Stop: 01/21/20 00:54 Last Admin: 01/21/20 00:59 Dose: Not Given Documented by: Remdesivir 200 mg/ Sodium (Chloride) 250 mls @ 250 mls/hr IV ONETIME ONE Stop: 01/19/20 14:41 Last Admin: 01/19/20 15:22 Dose: 250 mls/hr Documented by: Sodium Chloride (Normal Saline) 1,000 mls @ 500 mls/hr IV ASDIRECTED [facility] Last Admin: 01/19/20 15:19 Dose: 500 mls/hr Documented by: Potassium Chloride 20 meq/Lidocaine HCl 2 ml/ Sodium Chloride 112 mls @ 56 mls/hr IV Q2H [facility] Stop: 01/21/20 13:59 Last Admin: 01/21/20 12:31 Dose: 56 mls/hr Documented by: Potassium Chloride 20 meq/ (Premix) 100 mls @ 50 mls/hr IV Q2H [facility] Stop: 01/22/20 06:13 Last Admin: 01/22/20 07:16 Dose: 50 mls/hr Documented by: Lidocaine HCl (Xylocaine-Mpf 1%) 0 ml INJECT Q2H [facility] Stop: 01/22/20 08:14 Last Admin: 01/22/20 07:16 Dose: 2 ml Documented by: Lorazepam (Ativan) 1 mg IVPUSH ONETIME ONE Stop: 01/20/20 00:52 Last Admin: 01/20/20 01:02 Dose: 1 mg Documented by: Potassium Chloride (Klor-Con M20) 40 meq PO ONETIME ONE Stop: 01/22/20 09:01 - Exam Quality Assessment: Supplemental Oxygen (High flow oxygen), DVT Prophylaxis General: Alert, Oriented, Cooperative, Moderate Distress Lungs: Rales. No: Normal Respiratory Effort, Rhonchi, Rub, Wheezing Cardiovascular: Regular Rate, Regular Rhythm, No Murmurs GI/Abdominal Exam: Soft, Non-Tender, No Organomegaly, No Distention Extremities: Non-Tender, No Pedal Edema Sepsis Event Note - Evaluation Sepsis Screening Result: No Definite Risk - Focused Exam Vital Signs: Vital Signs Temp Pulse Resp BP Pulse Ox 01/22/20 07:27 99.8 F 77 28 H 126/62 86 L 01/22/20 07:03 92 L 01/22/20 03:23 100.1 F 84 16 132/68 87 L 01/22/20 01:09 88 L 01/22/20 00:10 98.9 F 75 16 126/55 L 97 01/21/20 21:30 97.6 F - Problem List Review Problem List Initiated/Reviewed/Updated: Yes - My Orders Last 24 Hours: My Active Orders 01/22/20 09:00 Potassium Chloride 20 meq Lidocaine 1% [Xylocaine 1%] 2 ml Sodium Chloride 0.9% [Normal Saline] 100 ml IV Q2H 01/22/20 09:07 BLOOD GAS ARTERIAL [BG] Stat 01/22/20 09:09 Furosemide [Lasix] 20 mg IVPUSH NOW ONE - Plan Plan:: ASSESSMENT AND PLAN SECONDARY TO [id number] for the past few days, increased dyspnea over the last 24 hours. Progressive weakness and nonproductive cough. Borderline ox ygenation currently on high flow oxygen system. -Saline lock IV -Remdesivir 100 mg IV daily. Now on day 06/22 -Dexamethasone 6 mg IV for 5 to 10 days (Day 06/22 or 06/27 depending) -Convalescent plasma 1 unit daily (Day 05/22 - first dose on 01/19) -Isolation -Lasix 20 mg IV today -ABGs pending, consider noninvasive positive pressure ventilation HYPOXIC RESPIRATORY COMPROMISE-secondary to COVID-19 and bilateral pneumonia -Supplemental oxygen as needed -Continuous pulse oximetry -Patient is full code and is willing/desirous of intubation if needed SEIZURE DISORDER -Continue new outpatient medications HYPOKALEMIA-calcium low again this morning -IV and oral replacement - Recheck K this PM - Follow up K in AM labs on 01/21 MAINTENANCE ISSUES -DVT prophylaxis; Lovenox 40 mg subcu daily -GI prophylaxis; not indicated -Mccoy catheter; not indicated -Nutrition; regular diet -Nicotine dependence; not required CODE STATUS-FULL CODE, I did review with this with the patient and at the present time he would like full resuscitation. He understands poor prognosis for survival if he does require intubation. ADMISSION STATUS-patient will be admitted to inpatient status, expect at least a 2 night hospital stay for evaluation and management of problems as outlined above. At the time of this admission I do not reasonably expected evaluation and management of this problem will require more than a 96 hour hospital stay. DISPOSITION-anticipate discharge to home after the hospital stay. PRIMARY CARE PROVIDER-
[2020-01-22] MEDS ORDERED: Furosemide 20 MG/2 ML VIAL IVPUSH ONE (10:00)
[2020-01-22] MEDS: Magnesium Oxide 400 MG Tab PO SCH (10:05)
[2020-01-22] MEDS: lamoTRIgine 100 MG Tab PO SCH ×2 (10:05→20:41)
[2020-01-22] MEDS: Aspirin 81 MG Tab.EC PO SCH (10:05)
[2020-01-22] MEDS: carBAMazepine 200 MG Tab PO SCH ×2 (10:05→20:41)
[2020-01-22] MEDS: Fenofibrate,Micronized 67 MG Cap PO SCH (10:05)
[2020-01-22] MEDS: Acetaminophen 325 MG Tab PO PRN ×2 (10:06→22:35)
[2020-01-22] MEDS: Dexamethasone 4 MG/ML SDV IVPUSH SCH (10:12)
[2020-01-22] MEDS: REMDESIVIR (EUA) 100 MG in Sodium Chloride 0.9% 100 ML IV SCH (15:08)
[2020-01-22] MEDS: Enoxaparin 40 MG/0.4 ML Syringe SUBCUT SCH (20:40)
[2020-01-22] MEDS: atorvaSTATin 20 MG Tab PO SCH (20:41)
[2020-01-22] MEDS ORDERED: LORazepam 2 MG/ML SDV IVPUSH PRN (22:05)
--- NOTE | 2020-01-22 22:09 | PCM.SN.2 ---
- Free Text/Narrative Note: time 2200 call from Covid Unit O: bi-pap. concerns anxiety, has increased respiratory rate- rate 40's , Oxygen sat 97% A: anxiety P: IV Ativan 1 mg. every 4 hours as needed for anxiety. continue with close monitoring
[2020-01-23] MEDS ORDERED: Furosemide 40 MG/4 ML VIAL ONE (00:15)
[2020-01-23] MEDS ORDERED: Furosemide 40 MG/4 ML VIAL IVPUSH ONE (00:15)
[2020-01-23] MEDS ORDERED: propofoL 0 ML ONE (00:25)
[2020-01-23] MEDS ORDERED: Ibuprofen Susp 100 MG/5 ML 5 ML UD Cup PO PRN (00:30)
[2020-01-23] MEDS ORDERED: Ibuprofen Susp 100 MG/5 ML 5 ML UD Cup ONE (00:37)
--- NOTE | 2020-01-23 00:45 | PCM.PN ---
- General Info Date of Service: 01/23/20 Admission Dx/Problem (Free Text): Acute decompensation of respiratory status in setting of COVID 19 PNA Functional Status: Reports: New Symptoms (Dyspnea, hypoxia, acute respiratory failure, new onset fever) - Review of Systems General: Reports: Fever, Weakness, Fatigue HEENT: Reports: No Symptoms Pulmonary: Reports: Shortness of Breath, Cough, Other (Dyspnea, increased WOB, Hypoxia) Cardiovascular: Reports: Chest Pain Gastrointestinal: Reports: No Symptoms - Patient Data Vitals - Most Recent: Last Vital Signs Temp 103.0 F H 01/23/20 00:24 Pulse 100 01/23/20 00:24 Resp 44 H 01/23/20 00:24 BP 162/70 H 01/23/20 00:24 Pulse Ox 92 L 01/23/20 00:24 Weight - Most Recent: 204 lb 15.984 oz I&O - Last 24 Hours: Intake & Output 01/22/20 01/22/20 01/23/20 14:59 22:59 06:59 Intake Total 414 814 Output Total 1000 225 Balance -586 589 Lab Results Last 24 Hours: Laboratory Results - last 24 hr 01/20/20 01/22/20 01/22/20 Range/Units 09:00 05:23 05:23 WBC 8.8 (4.5-11.0) K/uL RBC 3.88 L (4.30-5.90) M/uL Hgb 12.0 (12.0-15.0) g/dL Hct 35.0 L (40.0-54.0) % MCV 90 (80-98) fL MCH 31 (27-31) pg MCHC 34 (32-36) % Plt Count 315 (150-400) K/uL Neut % (Auto) 77 H (36-66) % Lymph % (Auto) 10 L (24-44) % [place] % (Auto) 12 H (2-6) % Eos % (Auto) 1 L (2-4) % Baso % (Auto) 1 (0-1) % D-Dimer, Quantitative 2710 H (0.0-400.0) ng/mL Puncture Site ABG pH (7.350-7.450) ABG pCO2 (35.0-42.0) mmHg ABG pO2 (75.0-100.0) mmHg ABG HCO3 (22.0-26.0) mmol/L ABG Total CO2 (23.0-27.0) mmol/L ABG O2 Saturation (95.0-98.0) % ABG O2 Content (15.0-23.0) %vol ABG Base Excess mm/L ABG Hemoglobin (13.5-18.0) g/dL ABG Oxyhemoglobin % ABG Carboxyhemoglobin (0.0-1.6) % ABG Methemoglobin % Carlos Test O2 Delivery Device Oxygen Flow Rate L Sodium (140-148) mmol/L Potassium (3.6-5.2) mmol/L Chloride (100-108) mmol/L Carbon Dioxide (21-32) mmol/L Anion Gap (5.0-14.0) mmol/L BUN (7-18) mg/dL Creatinine (0.8-1.3) mg/dL Est Cr Clr Drug Dosing mL/min Estimated GFR (MDRD) (>60) Glucose (74-106) mg/dL Calcium (8.5-10.1) mg/dL Ferritin (8-388) ng/ml Total Bilirubin (0.2-1.0) mg/dL AST (15-37) U/L ALT (12-78) U/L Alkaline Phosphatase (46-116) U/L C-Reactive Protein (0.0-0.3) mg/dL Total Protein (6.4-8.2) g/dL Albumin (3.4-5.0) g/dL Globulin (2.3-3.5) g/dL Albumin/Globulin Ratio (1.2-2.2) Blood Type O POSITIVE 01/22/20 01/22/20 01/22/20 Range/Units 05:23 09:30 10:45 WBC (4.5-11.0) K/uL RBC (4.30-5.90) M/uL Hgb (12.0-15.0) g/dL Hct (40.0-54.0) % MCV (80-98) fL MCH (27-31) pg MCHC (32-36) % Plt Count (150-400) K/uL Neut % (Auto) (36-66) % Lymph % (Auto) (24-44) % [place] % (Auto) (2-6) % Eos % (Auto) (2-4) % Baso % (Auto) (0-1) % D-Dimer, Quantitative (0.0-400.0) ng/mL Puncture Site Right radial Rt radial ABG pH 7.540 H 7.518 H (7.350-7.450) ABG pCO2 27.0 L 28.3 L (35.0-42.0) mmHg ABG pO2 54.2 L 76.3 (75.0-100.0) mmHg ABG HCO3 23.0 22.9 (22.0-26.0) mmol/L ABG Total CO2 20.1 L 20.1 L (23.0-27.0) mmol/L ABG O2 Saturation 89.2 L 95.3 (95.0-98.0) % ABG O2 Content 15.3 16.4 (15.0-23.0) %vol ABG Base Excess 1.6 1.2 mm/L ABG Hemoglobin 12.5 L 12.5 L (13.5-18.0) g/dL ABG Oxyhemoglobin 87.0 92.9 % ABG Carboxyhemoglobin 1.2 1.4 (0.0-1.6) % ABG Methemoglobin 1.3 1.1 % Carlos Test Pass Pass O2 Delivery Device Nasal cannula Bipap Oxygen Flow Rate L Sodium 135 L (140-148) mmol/L Potassium 2.6 L* (3.6-5.2) mmol/L Chloride 100 (100-108) mmol/L Carbon Dioxide 24 (21-32) mmol/L Anion Gap 13.6 (5.0-14.0) mmol/L BUN 14 (7-18) mg/dL Creatinine 0.7 L (0.8-1.3) mg/dL Est Cr Clr Drug Dosing 99.26 mL/min Estimated GFR (MDRD) > 60 (>60) Glucose 114 H (74-106) mg/dL Calcium 8.1 L (8.5-10.1) mg/dL Ferritin 839 H (8-388) ng/ml Total Bilirubin 0.4 (0.2-1.0) mg/dL AST 32 (15-37) U/L ALT 28 (12-78) U/L Alkaline Phosphatase 42 L (46-116) U/L C-Reactive Protein 15.11 H (0.0-0.3) mg/dL Total Protein 5.8 L (6.4-8.2) g/dL Albumin 2.3 L (3.4-5.0) g/dL Globulin 3.5 (2.3-3.5) g/dL Albumin/Globulin Ratio 0.7 L (1.2-2.2) Blood Type 01/22/20 01/22/20 Range/Units 13:55 23:38 WBC (4.5-11.0) K/uL RBC (4.30-5.90) M/uL Hgb (12.0-15.0) g/dL Hct (40.0-54.0) % MCV (80-98) fL MCH (27-31) pg MCHC (32-36) % Plt Count (150-400) K/uL Neut % (Auto) (36-66) % Lymph % (Auto) (24-44) % [place] % (Auto) (2-6) % Eos % (Auto) (2-4) % Baso % (Auto) (0-1) % D-Dimer, Quantitative (0.0-400.0) ng/mL Puncture Site Rt brachial ABG pH 7.466 H (7.350-7.450) ABG pCO2 28.2 L (35.0-42.0) mmHg ABG pO2 68.9 L (75.0-100.0) mmHg ABG HCO3 20.1 L (22.0-26.0) mmol/L ABG Total CO2 17.6 L (23.0-27.0) mmol/L ABG O2 Saturation 92.8 L (95.0-98.0) % ABG O2 Content 16.8 (15.0-23.0) %vol ABG Base Excess -2.1 mm/L ABG Hemoglobin 13.3 L (13.5-18.0) g/dL ABG Oxyhemoglobin 89.6 % ABG Carboxyhemoglobin 2.7 H (0.0-1.6) % ABG Methemoglobin 0.8 % Carlos Test Not performed O2 Delivery Device Bipap Oxygen Flow Rate L Sodium (140-148) mmol/L Potassium 3.4 L (3.6-5.2) mmol/L Chloride (100-108) mmol/L Carbon Dioxide (21-32) mmol/L Anion Gap (5.0-14.0) mmol/L BUN (7-18) mg/dL Creatinine (0.8-1.3) mg/dL Est Cr Clr Drug Dosing mL/min Estimated GFR (MDRD) (>60) Glucose (74-106) mg/dL Calcium (8.5-10.1) mg/dL Ferritin (8-388) ng/ml Total Bilirubin (0.2-1.0) mg/dL AST (15-37) U/L ALT (12-78) U/L Alkaline Phosphatase (46-116) U/L C-Reactive Protein (0.0-0.3) mg/dL Total Protein (6.4-8.2) g/dL Albumin (3.4-5.0) g/dL Globulin (2.3-3.5) g/dL Albumin/Globulin Ratio (1.2-2.2) Blood Type Med Orders - Current: Current Medications Acetaminophen (Tylenol) 650 mg PO Q4H PRN PRN Reason: Fever Greater Than 101 Last Admin: 01/22/20 22:35 Dose: 650 mg Documented by: Albuterol (Ventolin Hfa) 2 gm INH Q4H PRN PRN Reason: Shortness of Breath Last Admin: 01/22/20 07:25 Dose: 2 inhalation Documented by: Aspirin (Halfprin) 81 mg PO DAILY [facility] Last Admin: 01/22/20 10:05 Dose: 81 mg Documented by: Atorvastatin Calcium (Lipitor) 40 mg PO BEDTIME [facility] Last Admin: 01/22/20 20:41 Dose: 40 mg Documented by: Carbamazepine (Tegretol Tab) 400 mg PO BID [facility] Last Admin: 01/22/20 20:41 Dose: 400 mg Documented by: Dexamethasone (Dexamethasone) 6 mg IVPUSH DAILY [facility] Stop: 01/29/20 09:01 Last Admin: 01/22/20 10:12 Dose: 6 mg Documented by: Enoxaparin Sodium (Lovenox) 40 mg SUBCUT BEDTIME [facility] Last Admin: 01/22/20 20:40 Dose: 40 mg Documented by: Fenofibrate (Fenofibrate) 134 mg PO QAM [facility] Last Admin: 01/22/20 10:05 Dose: 134 mg Documented by: Remdesivir 100 mg/ Sodium (Chloride) 100 mls @ 100 mls/hr IV Q24H [facility] Stop: 01/23/20 15:59 Last Admin: 01/22/20 15:08 Dose: 100 mls/hr Documented by: Ibuprofen (Motrin 100 Mg/5 Ml Susp) 400 mg PO Q6H PRN PRN Reason: Fever Lamotrigine (Lamotrigine) 200 mg PO BID [facility] Last Admin: 01/22/20 20:41 Dose: 200 mg Documented by: Lorazepam (Ativan) 1 mg IVPUSH Q4H PRN PRN Reason: Anxiety Last Admin: 01/22/20 22:21 Dose: 1 mg Documented by: Magnesium Oxide (Magnesium Oxide) 400 mg PO DAILY [facility] Last Admin: 01/22/20 10:05 Dose: 400 mg Documented by: Ondansetron HCl (Zofran) 4 mg IV Q4H PRN PRN Reason: Nausea/Vomiting Last Admin: 01/21/20 00:56 Dose: 4 mg Documented by: Polyethylene Glycol (Miralax) 17 gm PO DAILY PRN PRN Reason: Constipation Sodium Chloride (Saline Flush) 10 ml FLUSH ASDIRECTED PRN PRN Reason: Keep Vein Open Discontinued Medications Dexamethasone (Dexamethasone) 6 mg IVPUSH ONETIME ONE Stop: 01/19/20 14:42 Last Admin: 01/19/20 15:19 Dose: 6 mg Documented by: Furosemide (Lasix) 40 mg IVPUSH ONETIME ONE Stop: 01/20/20 12:31 Last Admin: 01/20/20 12:54 Dose: 40 mg Documented by: Furosemide (Lasix) 40 mg IVPUSH ONETIME ONE Stop: 01/21/20 09:01 Furosemide (Lasix) 40 mg IVPUSH ONETIME ONE Stop: 01/21/20 00:45 Last Admin: 01/21/20 00:58 Dose: 40 mg Documented by: Furosemide (Lasix) Confirm Administered Dose 40 mg .ROUTE .STK-MED ONE Stop: 01/21/20 00:54 Last Admin: 01/21/20 00:59 Dose: Not Given Documented by: Furosemide (Lasix) 20 mg IVPUSH ONETIME ONE Stop: 01/22/20 10:01 Last Admin: 01/22/20 10:21 Dose: 20 mg Documented by: Furosemide (Lasix) Confirm Administered Dose 40 mg .ROUTE .STK-MED ONE Stop: 01/23/20 00:16 Last Admin: 01/23/20 00:20 Dose: 40 mg Documented by: Remdesivir 200 mg/ Sodium (Chloride) 250 mls @ 250 mls/hr IV ONETIME ONE Stop: 01/19/20 14:41 Last Admin: 01/19/20 15:22 Dose: 250 mls/hr Documented by: Sodium Chloride (Normal Saline) 1,000 mls @ 500 mls/hr IV ASDIRECTED [facility] Last Admin: 01/19/20 15:19 Dose: 500 mls/hr Documented by: Potassium Chloride 20 meq/Lidocaine HCl 2 ml/ Sodium Chloride 112 mls @ 56 mls/hr IV Q2H [facility] Stop: 01/21/20 13:59 Last Admin: 01/21/20 12:31 Dose: 56 mls/hr Documented by: Potassium Chloride 20 meq/ (Premix) 100 mls @ 50 mls/hr IV Q2H [facility] Stop: 01/22/20 06:13 Last Admin: 01/22/20 07:16 Dose: 50 mls/hr Documented by: Potassium Chloride 20 meq/Lidocaine HCl 2 ml/ Sodium Chloride 112 mls @ 56 mls/hr IV Q2H [facility] Stop: 01/22/20 10:59 Last Admin: 01/22/20 10:04 Dose: Not Given Documented by: Potassium Chloride 20 meq/Lidocaine HCl 2 ml/ Sodium Chloride 112 mls @ 56 mls/hr IV Q2H [facility] Stop: 01/22/20 10:59 Last Admin: 01/22/20 09:24 Dose: 56 mls/hr Documented by: Propofol (Diprivan 100 Ml) Confirm Administered Dose 100 mls @ as directed .ROUTE .STK-MED ONE Stop: 01/23/20 00:26 Lidocaine HCl (Xylocaine-Mpf 1%) 0 ml INJECT Q2H [facility] Stop: 01/22/20 08:14 Last Admin: 01/22/20 07:16 Dose: 2 ml Documented by: Lorazepam (Ativan) 1 mg IVPUSH ONETIME ONE Stop: 01/20/20 00:52 Last Admin: 01/20/20 01:02 Dose: 1 mg Documented by: Potassium Chloride (Klor-Con M20) 40 meq PO ONETIME ONE Stop: 01/22/20 09:01 Last Admin: 01/22/20 10:05 Dose: 40 meq Documented by: Potassium Chloride (Klor-Con M20) 40 meq PO ONETIME ONE Stop: 01/22/20 15:16 Last Admin: 01/22/20 15:28 Dose: 40 meq Documented by: - Exam Quality Assessment: Supplemental Oxygen (Patient is on 80% FiO2 on BiPAP), DVT Prophylaxis General: Alert, Oriented, Cooperative, Severe Distress Lungs: Decreased Breath Sounds, Crackles, Other (increased WOB). No: Normal Respiratory Effort Cardiovascular: Regular Rate, Regular Rhythm GI/Abdominal Exam: Normal Bowel Sounds Neurological: No New Focal Deficit Psy/Mental Status: Alert Sepsis Event Note - Evaluation Sepsis Screening Result: No Definite Risk - Focused Exam Vital Signs: Vital Signs Temp Temp Pulse Resp BP Pulse Ox 01/23/20 00:24 103.0 F H 100 44 H 162/70 H 92 L 01/22/20 23:05 101.8 F H 01/22/20 22:35 101.6 F H 01/22/20 22:34 101.6 F H 90 48 H 152/77 H 92 L 01/22/20 19:31 95 01/22/20 18:22 98 F 65 18 109/54 L 95 01/22/20 14:18 96.8 F L 63 20 131/68 95 01/22/20 14:14 97.1 F 67 18 129/69 95 01/22/20 13:46 98.4 F 71 18 126/70 95 01/22/20 13:15 98.7 F 65 20 108/57 L 01/22/20 12:47 98.7 F 66 18 113/59 L 94 L - Problem List Review Problem List Initiated/Reviewed/Updated: Yes - My Orders Last 24 Hours: My Active Orders 01/22/20 15:46 Transfuse Fresh Frozen Plasma [COMM] DAILY 01/23/20 05:00 C-REACTIVE PROTEIN [CHEM] DAILY CBC WITH AUTO DIFF [HEME] DAILY COMPREHENSIVE METABOLIC PN,CMP [CHEM] DAILY D-DIMER QUANTITATIVE [COAG] DAILY FERRITIN [CHEM] DAILY 01/23/20 15:46 FRESH FROZEN PLASMA [BBK] DAILY Transfuse Fresh Frozen Plasma [COMM] DAILY 01/24/20 05:00 C-REACTIVE PROTEIN [CHEM] DAILY CBC WITH AUTO DIFF [HEME] DAILY COMPREHENSIVE METABOLIC PN,CMP [CHEM] DAILY D-DIMER QUANTITATIVE [COAG] DAILY FERRITIN [CHEM] DAILY 01/24/20 15:46 FRESH FROZEN PLASMA [BBK] DAILY Transfuse Fresh Frozen Plasma [COMM] DAILY 01/25/20 05:00 C-REACTIVE PROTEIN [CHEM] DAILY CBC WITH AUTO DIFF [HEME] DAILY COMPREHENSIVE METABOLIC PN,CMP [CHEM] DAILY D-DIMER QUANTITATIVE [COAG] DAILY FERRITIN [CHEM] DAILY - Plan Plan:: ASSESSMENT AND PLAN SECONDARY TO [id number] for the past few days, increased dyspnea over the last 24 hours. Progressive weakness and nonproductive cough. Borderline oxygenation currently on high flow oxygen system. On overnight of 01/21-01/23/2020 patient acutely decompensated. Developed high fever of 102-103 F, increasing oxygen demand to 80% FiO2. On BiPAP. HR increasing. Patient has stabilized and thus far has not required intubation. We are assessing patient for transfer to higher level of care and this is being discussed with Chintan Nunes -Saline lock IV -Remdesivir 100 mg IV daily. Now on day 06/22 -Dexamethasone 6 mg IV for 5 to 10 days (Day 06/22 or 06/27 depending) -Convalescent plasma 1 unit daily (Day 05/22 - first dose on 01/19) -Isolation -Lasix 40 mg IV now. HYPOXIC RESPIRATORY COMPROMISE-secondary to COVID-19 and bilateral pneumonia -Supplemental oxygen as needed -Continuous pulse oximetry -Patient is full code and is willing/desirous of intubation if needed SEIZURE DISORDER -Continue new outpatient medications HYPOKALEMIA-calcium low again this morning -IV and oral replacement - Recheck K this PM - Follow up K in AM labs on 01/21 MAINTENANCE ISSUES -DVT prophylaxis; Lovenox 40 mg subcu daily -GI prophylaxis; not indicated -Mccoy catheter; not indicated -Nutrition; regular diet -Nicotine dependence; not required CODE STATUS-FULL CODE, I did review with this with the patient and at the present time he would like full resuscitation. He understands poor prognosis for survival if he does require intubation. ADMISSION STATUS-patient will be admitted to inpatient status, expect at least a 2 night hospital stay for evaluation and management of problems as outlined above. At the time of this admission I do not reasonably expected evaluation and management of this problem will require more than a 96 hour hospital stay. DISPOSITION-anticipate discharge to home after the hospital stay. PRIMARY CARE PROVIDER- Chato Arellano M.D. Hospitalist 23 January 2020
--- NOTE | 2020-01-23 00:55 | PCM.DCSUM1 ---
Discharge Summary - Hospital Course HPI Initial Comments: Discharge Diagnoses: 1. Acute COVID 19 PNA 2. Acute respiratory failure Hospital Course: Holden Black was admitted to [facility] on 01/07/2020. The patient was diagnosed with COVID 19 PNA in the setting of underlying CP history among other medical conditions. He had been gradually deteriorating but his decline has stopped short of intubation. On the overnight of 01/21-01/22 the patient had decompensated with increasing RR, WOB, and declining oxygenation. The patient was placed on BiPAP 80% FiO2. He was assessed by myself and the ED attending armor reconnaissance vehicle crewman covering the Code Team and it was felt that while the patient was declining, BiPAP had stabilized the patient sufficiently to stabilize the patient for transfer to outside facility. The patient does have a RR in the 20-50's. With BiPAP this has somewhat stabilized. He has had previously good responses to lasix. He was given 20 mg IV during day shift and is given another 40 mg IV around the time of decompensation. He is a full code but thus far has avoided the need for i ntubation. The patient as transferred to an appropriate higher level of care for continued bulb planter management/pulmonary management of his care. Diagnosis: Stroke: No - Discharge Data Discharge Date: 01/23/20 Discharge Disposition: DC/Tfer to Acute Hospital 02 Condition: Serious - Referral to Home Health Primary Care Physician: PCP None - Discharge Plan *PRESCRIPTION DRUG MONITORING PROGRAM REVIEWED*: No *COPY OF PRESCRIPTION DRUG MONITORING REPORT IN PATIENT MICHAEL: No Home Medications: Home Meds Fenofibrate,Micronized [Fenofibrate] 134 mg PO QAM 01/12/13 [History] atorvaSTATin [Lipitor] 40 mg PO BEDTIME 01/12/13 [History] carBAMazepine [Carbamazepine] 400 mg PO BID 01/12/13 [History] lamoTRIgine [Lamotrigine] 200 mg PO BID 01/12/13 [History] Cholecalciferol (Vitamin D3) [Vitamin D3] 4,000 units PO BID 08/03/15 [History] [place]-3 Fatty Acids [Fish Oil] 300 mg PO DAILY 08/03/15 [History] Aspirin [Halfprin] 81 mg PO DAILY 02/13/18 [History] Magnesium 250 mg PO DAILY 02/13/18 [History] Acetaminophen [Tylenol] 650 mg PO Q4H PRN tablet 01/23/20 [Rx] Albuterol [Ventolin HFA] 2 gm INH Q4H PRN inhaler 01/23/20 [Rx] Enoxaparin [Lovenox] 40 mg SUBCUT BEDTIME syringe 01/23/20 [Rx] Ibuprofen [Motrin 100 MG/5 ML Susp] 400 mg PO Q6H PRN cup 01/23/20 [Rx] LORazepam [Ativan] 1 mg IVPUSH Q4H PRN vial 01/23/20 [Rx] Ondansetron [Zofran] 4 mg IV Q4H PRN vial 01/23/20 [Rx] Remdesivir (Eua) [Remdesivir (EUA)] 100 mg IV Q24H vial 01/23/20 [Rx] Sodium Chloride 0.9% [Saline Flush] 10 ml FLUSH ASDIRECTED PRN syringe 01/23/20 [Rx] dexAMETHasone [Decadron] 6 mg IVPUSH DAILY sdv 01/23/20 [Rx] polyethylene glycoL 3350 [MiraLAX] 17 gm PO DAILY PRN packet 01/23/20 [Rx] FiO2: 80 Forms: ED Department Discharge Referrals: PCP,None [Primary Care Provider] - - Discharge Summary/Plan Comment DC Time >30 min.: Yes - Patient Data Vitals - Most Recent: Last Vital Signs Temp 214.7 F H 01/23/20 00:43 Pulse 100 01/23/20 00:24 Resp 44 H 01/23/20 00:24 BP 162/70 H 01/23/20 00:24 Pulse Ox 92 L 01/23/20 00:24 Weight - Most Recent: 204 lb 15.984 oz I&O - Last 24 hours: Intake & Output 01/22/20 01/22/20 01/23/20 14:59 22:59 06:59 Intake Total 414 814 Output Total 1000 225 Balance -586 589 Lab Results - Last 24 hrs: Laboratory Results - last 24 hr 01/20/20 01/22/20 01/22/20 Range/Units 09:00 05:23 05:23 WBC 8.8 (4.5-11.0) K/uL RBC 3.88 L (4.30-5.90) M/uL Hgb 12.0 (12.0-15.0) g/dL Hct 35.0 L (40.0-54.0) % MCV 90 (80-98) fL MCH 31 (27-31) pg MCHC 34 (32-36) % Plt Count 315 (150-400) K/uL Neut % (Auto) 77 H (36-66) % Lymph % (Auto) 10 L (24-44) % [place] % (Auto) 12 H (2-6) % Eos % (Auto) 1 L (2-4) % Baso % (Auto) 1 (0-1) % D-Dimer, Quantitative 2710 H (0.0-400.0) ng/mL Puncture Site ABG pH (7.350-7.450) ABG pCO2 (35.0-42.0) mmHg ABG pO2 (75.0-100.0) mmHg ABG HCO3 (22.0-26.0) mmol/L ABG Total CO2 (23.0-27.0) mmol/L ABG O2 Saturation (95.0-98.0) % ABG O2 Content (15.0-23.0) %vol ABG Base Excess mm/L ABG Hemoglobin (13.5-18.0) g/dL ABG Oxyhemoglobin % ABG Carboxyhemoglobin (0.0-1.6) % ABG Methemoglobin % Carlos Test O2 Delivery Device Oxygen Flow Rate L Sodium (140-148) mmol/L Potassium (3.6-5.2) mmol/L Chloride (100-108) mmol/L Carbon Dioxide (21-32) mmol/L Anion Gap (5.0-14.0) mmol/L BUN (7-18) mg/dL Creatinine (0.8-1.3) mg/dL Est Cr Clr Drug Dosing mL/min Estimated GFR (MDRD) (>60) Glucose (74-106) mg/dL Calcium (8.5-10.1) mg/dL Ferritin (8-388) ng/ml Total Bilirubin (0.2-1.0) mg/dL AST (15-37) U/L ALT (12-78) U/L Alkaline Phosphatase (46-116) U/L Troponin I (0.000-0.056) ng/mL C-Reactive Protein (0.0-0.3) mg/dL Total Protein (6.4-8.2) g/dL Albumin (3.4-5.0) g/dL Globulin (2.3-3.5) g/dL Albumin/Globulin Ratio (1.2-2.2) Blood Type O POSITIVE 01/22/20 01/22/20 01/22/20 Range/Units 05:23 09:30 10:45 WBC (4.5-11.0) K/uL RBC (4.30-5.90) M/uL Hgb (12.0-15.0) g/dL Hct (40.0-54.0) % MCV (80-98) fL MCH (27-31) pg MCHC (32-36) % Plt Count (150-400) K/uL Neut % (Auto) (36-66) % Lymph % (Auto) (24-44) % [place] % (Auto) (2-6) % Eos % (Auto) (2-4) % Baso % (Auto) (0-1) % D-Dimer, Quantitative (0.0-400.0) ng/mL Puncture Site Right radial Rt radial ABG pH 7.540 H 7.518 H (7.350-7.450) ABG pCO2 27.0 L 28.3 L (35.0-42.0) mmHg ABG pO2 54.2 L 76.3 (75.0-100.0) mmHg ABG HCO3 23.0 22.9 (22.0-26.0) mmol/L ABG Total CO2 20.1 L 20.1 L (23.0-27.0) mmol/L ABG O2 Saturation 89.2 L 95.3 (95.0-98.0) % ABG O2 Content 15.3 16.4 (15.0-23.0) %vol ABG Base Excess 1.6 1.2 mm/L ABG Hemoglobin 12.5 L 12.5 L (13.5-18.0) g/dL ABG Oxyhemoglobin 87.0 92.9 % ABG Carboxyhemoglobin 1.2 1.4 (0.0-1.6) % ABG Methemoglobin 1.3 1.1 % Carlos Test Pass Pass O2 Delivery Device Nasal cannula Bipap Oxygen Flow Rate L Sodium 135 L (140-148) mmol/L Potassium 2.6 L* (3.6-5.2) mmol/L Chloride 100 (100-108) mmol/L Carbon Dioxide 24 (21-32) mmol/L Anion Gap 13.6 (5.0-14.0) mmol/L BUN 14 (7-18) mg/dL Creatinine 0.7 L (0.8-1.3) mg/dL Est Cr Clr Drug Dosing 99.26 mL/min Estimated GFR (MDRD) > 60 (>60) Glucose 114 H (74-106) mg/dL Calcium 8.1 L (8.5-10.1) mg/dL Ferritin 839 H (8-388) ng/ml Total Bilirubin 0.4 (0.2-1.0) mg/dL AST 32 (15-37) U/L ALT 28 (12-78) U/L Alkaline Phosphatase 42 L (46-116) U/L Troponin I (0.000-0.056) ng/mL C-Reactive Protein 15.11 H (0.0-0.3) mg/dL Total Protein 5.8 L (6.4-8.2) g/dL Albumin 2.3 L (3.4-5.0) g/dL Globulin 3.5 (2.3-3.5) g/dL Albumin/Globulin Ratio 0.7 L (1.2-2.2) Blood Type 01/22/20 01/22/20 01/23/20 Range/Units 13:55 23:38 00:38 WBC (4.5-11.0) K/uL RBC (4.30-5.90) M/uL Hgb (12.0-15.0) g/dL Hct (40.0-54.0) % MCV (80-98) fL MCH (27-31) pg MCHC (32-36) % Plt Count (150-400) K/uL Neut % (Auto) (36-66) % Lymph % (Auto) (24-44) % [place] % (Auto) (2-6) % Eos % (Auto) (2-4) % Baso % (Auto) (0-1) % D-Dimer, Quantitative (0.0-400.0) ng/mL Puncture Site Rt brachial ABG pH 7.466 H (7.350-7.450) ABG pCO2 28.2 L (35.0-42.0) mmHg ABG pO2 68.9 L (75.0-100.0) mmHg ABG HCO3 20.1 L (22.0-26.0) mmol/L ABG Total CO2 17.6 L (23.0-27.0) mmol/L ABG O2 Saturation 92.8 L (95.0-98.0) % ABG O2 Content 16.8 (15.0-23.0) %vol ABG Base Excess -2.1 mm/L ABG Hemoglobin 13.3 L (13.5-18.0) g/dL ABG Oxyhemoglobin 89.6 % ABG Carboxyhemoglobin 2.7 H (0.0-1.6) % ABG Methemoglobin 0.8 % Carlos Test Not performed O2 Delivery Device Bipap Oxygen Flow Rate L Sodium (140-148) mmol/L Potassium 3.4 L (3.6-5.2) mmol/L Chloride (100-108) mmol/L Carbon Dioxide (21-32) mmol/L Anion Gap (5.0-14.0) mmol/L BUN (7-18) mg/dL Creatinine (0.8-1.3) mg/dL Est Cr Clr Drug Dosing mL/min Estimated GFR (MDRD) (>60) Glucose (74-106) mg/dL Calcium (8.5-10.1) mg/dL Ferritin (8-388) ng/ml Total Bilirubin (0.2-1.0) mg/dL AST (15-37) U/L ALT (12-78) U/L Alkaline Phosphatase (46-116) U/L Troponin I < 0.017 (0.000-0.056) ng/mL C-Reactive Protein (0.0-0.3) mg/dL Total Protein (6.4-8.2) g/dL Albumin (3.4-5.0) g/dL Globulin (2.3-3.5) g/dL Albumin/Globulin Ratio (1.2-2.2) Blood Type Med Orders - Current: Current Medications Acetaminophen (Tylenol) 650 mg PO Q4H PRN PRN Reason: Fever Greater Than 101 Last Admin: 01/22/20 22:35 Dose: 650 mg Documented by: Albuterol (Ventolin Hfa) 2 gm INH Q4H PRN PRN Reason: Shortness of Breath Last Admin: 01/22/20 07:25 Dose: 2 inhalation Documented by: Aspirin (Halfprin) 81 mg PO DAILY [facility] Last Admin: 01/22/20 10:05 Dose: 81 mg Documented by: Atorvastatin Calcium (Lipitor) 40 mg PO BEDTIME [facility] Last Admin: 01/22/20 20:41 Dose: 40 mg Documented by: Carbamazepine (Tegretol Tab) 400 mg PO BID [facility] Last Admin: 01/22/20 20:41 Dose: 400 mg Documented by: Dexamethasone (Dexamethasone) 6 mg IVPUSH DAILY [facility] Stop: 01/29/20 09:01 Last Admin: 01/22/20 10:12 Dose: 6 mg Documented by: Enoxaparin Sodium (Lovenox) 40 mg SUBCUT BEDTIME [facility] Last Admin: 01/22/20 20:40 Dose: 40 mg Documented by: Fenofibrate (Fenofibrate) 134 mg PO QAM [facility] Last Admin: 01/22/20 10:05 Dose: 134 mg Documented by: Remdesivir 100 mg/ Sodium (Chloride) 100 mls @ 100 mls/hr IV Q24H [facility] Stop: 01/23/20 15:59 Last Admin: 01/22/20 15:08 Dose: 100 mls/hr Documented by: Ibuprofen (Motrin 100 Mg/5 Ml Susp) 400 mg PO Q6H PRN PRN Reason: Fever Lamotrigine (Lamotrigine) 200 mg PO BID [facility] Last Admin: 01/22/20 20:41 Dose: 200 mg Documented by: Lorazepam (Ativan) 1 mg IVPUSH Q4H PRN PRN Reason: Anxiety Last Admin: 01/22/20 22:21 Dose: 1 mg Documented by: Magnesium Oxide (Magnesium Oxide) 400 mg PO DAILY [facility] Last Admin: 01/22/20 10:05 Dose: 400 mg Documented by: Ondansetron HCl (Zofran) 4 mg IV Q4H PRN PRN Reason: Nausea/Vomiting Last Admin: 01/21/20 00:56 Dose: 4 mg Documented by: Polyethylene Glycol (Miralax) 17 gm PO DAILY PRN PRN Reason: Constipation Sodium Chloride (Saline Flush) 10 ml FLUSH ASDIRECTED PRN PRN Reason: Keep Vein Open Discontinued Medications Dexamethasone (Dexamethasone) 6 mg IVPUSH ONETIME ONE Stop: 01/19/20 14:42 Last Admin: 01/19/20 15:19 Dose: 6 mg Documented by: Furosemide (Lasix) 40 mg IVPUSH ONETIME ONE Stop: 01/20/20 12:31 Last Admin: 01/20/20 12:54 Dose: 40 mg Documented by: Furosemide (Lasix) 40 mg IVPUSH ONETIME ONE Stop: 01/21/20 09:01 Furosemide (Lasix) 40 mg IVPUSH ONETIME ONE Stop: 01/21/20 00:45 Last Admin: 01/21/20 00:58 Dose: 40 mg Documented by: Furosemide (Lasix) Confirm Administered Dose 40 mg .ROUTE .STK-MED ONE Stop: 01/21/20 00:54 Last Admin: 01/21/20 00:59 Dose: Not Given Documented by: Furosemide (Lasix) 20 mg IVPUSH ONETIME ONE Stop: 01/22/20 10:01 Last Admin: 01/22/20 10:21 Dose: 20 mg Documented by: Furosemide (Lasix) Confirm Administered Dose 40 mg .ROUTE .STK-MED ONE Stop: 01/23/20 00:16 Last Admin: 01/23/20 00:20 Dose: 40 mg Documented by: Remdesivir 200 mg/ Sodium (Chloride) 250 mls @ 250 mls/hr IV ONETIME ONE Stop: 01/19/20 14:41 Last Admin: 01/19/20 15:22 Dose: 250 mls/hr Documented by: Sodium Chloride (Normal Saline) 1,000 mls @ 500 mls/hr IV ASDIRECTED [facility] Last Admin: 01/19/20 15:19 Dose: 500 mls/hr Documented by: Potassium Chloride 20 meq/Lidocaine HCl 2 ml/ Sodium Chloride 112 mls @ 56 mls/hr IV Q2H [facility] Stop: 01/21/20 13:59 Last Admin: 01/21/20 12:31 Dose: 56 mls/hr Documented by: Potassium Chloride 20 meq/ (Premix) 100 mls @ 50 mls/hr IV Q2H [facility] Stop: 01/22/20 06:13 Last Admin: 01/22/20 07:16 Dose: 50 mls/hr Documented by: Potassium Chloride 20 meq/Lidocaine HCl 2 ml/ Sodium Chloride 112 mls @ 56 mls/hr IV Q2H [facility] Stop: 01/22/20 10:59 Last Admin: 01/22/20 10:04 Dose: Not Given Documented by: Potassium Chloride 20 meq/Lidocaine HCl 2 ml/ Sodium Chloride 112 mls @ 56 mls/hr IV Q2H [facility] Stop: 01/22/20 10:59 Last Admin: 01/22/20 09:24 Dose: 56 mls/hr Documented by: Propofol (Diprivan 100 Ml) Confirm Administered Dose 100 mls @ as directed .ROUTE .STK-MED ONE Stop: 01/23/20 00:26 Ibuprofen (Motrin 100 Mg/5 Ml Susp) Confirm Administered Dose 400 mg .ROUTE .STK-MED ONE Stop: 01/23/20 00:38 Last Admin: 01/23/20 00:43 Dose: 400 mg Documented by: Lidocaine HCl (Xylocaine-Mpf 1%) 0 ml INJECT Q2H [facility] Stop: 01/22/20 08:14 Last Admin: 01/22/20 07:16 Dose: 2 ml Documented by: Lorazepam (Ativan) 1 mg IVPUSH ONETIME ONE Stop: 01/20/20 00:52 Last Admin: 01/20/20 01:02 Dose: 1 mg Documented by: Potassium Chloride (Klor-Con M20) 40 meq PO ONETIME ONE Stop: 01/22/20 09:01 Last Admin: 01/22/20 10:05 Dose: 40 meq Documented by: Potassium Chloride (Klor-Con M20) 40 meq PO ONETIME ONE Stop: 01/22/20 15:16 Last Admin: 01/22/20 15:28 Dose: 40 meq Documented by: - Exam Quality Assessment: Reports: Supplemental Oxygen, Urine Catheter, DVT Prophylaxis General: Reports: Severe Distress, Sedated Lungs: Reports: Decreased Breath Sounds, Crackles, Other (increased wob, hypoxia). Denies: Normal Respiratory Effort Cardiovascular: Reports: Regular Rhythm, Tachycardia GI/Abdominal Exam: Normal Bowel Sounds
[2020-01-23 00:59] VITALS: BP 128/60; PULSE 87
--- NOTE | 2020-01-23 09:16 | CR ---
CHEST: Portable 01/22/2020 11:58 PM CLINICAL HISTORY:Hypoxia, covid COMPARISON:01/19/2020 FINDINGS: There are diffuse bilateral pulmonary infiltrates which have increased since prior study. Heart and pulmonary vascular normal. There are atherosclerotic changes in the aorta.. Patient is a permanent cardiac pacer. IMPRESSION: Increasing diffuse bilateral pulmonary infiltrates
== END 2020-01-23 02:40 | DRG 177 ==
LOC: JP.ED 14:03 → JP.2SS 17:22
PROVIDERS: ADMIT Hospitalist; ATTEND Hospitalist
DX: U07.1 COVID-19 (principal); J18.9 Pneumonia, unspecified organism; J12.89 Other viral pneumonia; J96.01 Acute respiratory failure with hypoxia; H54.7 Unspecified visual loss; E78.00 Pure hypercholesterolemia, unspecified; I25.10 Atherosclerotic heart disease of native coronary artery without angina pectoris; G47.30 Sleep apnea, unspecified; F32.9 Major depressive disorder, single episode, unspecified; G80.9 Cerebral palsy, unspecified; G40.909 Epilepsy, unspecified, not intractable, without status epilepticus; E87.6 Hypokalemia; F41.9 Anxiety disorder, unspecified; Z79.82 Long term (current) use of aspirin; Z79.899 Other long term (current) drug therapy; Z85.828 Personal history of other malignant neoplasm of skin
CPT/HCPCS: 36415; 71045 ×2; 80053; 82728; 83605; 85025; 85379; 85610; 85730; 86140; 96361; 96365; 96375; 99285; J1100; J7030; J7050; 36430; 36600; 51702; 82803; 84132; 84484; 86900; 86901; 94640; 94660; 94762; A9270-GY; J1650; J1940; J2001; J2060; J2405; J3480; P9017

== ENCOUNTER 2021-09-07 08:58 | Day surgery (SDC) | payer MEDICARE ==
[2021-09-07] MEDS ORDERED: Lactated Ringers 1,000 ML IV SCH (09:30)
[2021-09-07] MEDS ORDERED: fentaNYL 100 MCG/2 ML SDV ONE (09:34)
[2021-09-07] MEDS ORDERED: Propofol 200 MG/20 ML SDV ONE (09:34)
[2021-09-07] MEDS ORDERED: Midazolam 1 MG/ML 2 ML SDV ONE (09:34)
[2021-09-07 11:44] VITALS: PULSE 60
[2021-09-07 11:54] VITALS: BP 140/81
== END 2021-09-07 11:56 | disposition home or self-care (01) ==
LOC: JP.SDS 08:58
PROVIDERS: ATTEND Family Medicine
DX: Z12.11 Encounter for screening for malignant neoplasm of colon (principal); D12.4 Benign neoplasm of descending colon; D12.5 Benign neoplasm of sigmoid colon; E78.5 Hyperlipidemia, unspecified; G40.909 Epilepsy, unspecified, not intractable, without status epilepticus; Z95.0 Presence of cardiac pacemaker; Z98.890 Other specified postprocedural states
CPT/HCPCS: J2250; J2704; J3010; J7120